=== PATIENT | female | born 1935 | race Caucasian/White ===

== ENCOUNTER 2021-11-19 20:30 | Inpatient (IN) ==
[2021-11-19] MEDS ORDERED: SODIUM CHLORIDE 0.9% 1000ML 1,000 ML IV ONE (20:39)
[2021-11-19] MEDS ORDERED: PANTOprazole 80 MG in DEXTROSE 5% 100 ML IV ONE (20:54)
[2021-11-19] MEDS ORDERED: PANTOPRAZOLE BOLUS/DRIP 1 EA IV STA (20:54)
[2021-11-19 21:06] LABS: iSTAT Creatinine 0.7 mg/dl (0.6-1.3); iSTAT Hemoglobin 12.6 g/dl (12.0-16.0); iSTAT Ionized Calcium 1.11 mmol/l (1.12-1.32); iSTAT Potassium 4.2 mmol/L (3.3-5.0)
[2021-11-19] MEDS ORDERED: OPTIRAY 320 100ml IV ONE (21:06)
[2021-11-19 21:10] LABS: Basophils # (auto) 0.02 K/uL (0-0.2); Basophils % (auto) 0.2 %; Hemoglobin 13.8 g/dL (12.0-16.0); Immature Granulocytes # (auto) 0.06 K/uL (0.00-0.02); Immature Granulocytes % (auto) 0.5 %; Lymphocytes # (auto) 2.08 K/uL (1.2-3.4); Lymphocytes % (auto) 18.5 %; Mean Corpuscular Hemoglobin 32.8 pg (25-34); Mean Corpuscular Hgb Conc 33.7 g/dL (32-36); Mean Corpuscular Volume 97.4 fL (80-100); Mean Platelet Volume 10.5 fL (7.4-10.4); Monocytes # (auto) 0.62 K/uL (0.11-0.59); Monocytes % (auto) 5.5 %; Neutrophils # (auto) 8.47 K/uL (1.4-6.5); Neutrophils % (auto) 75.3 %; Platelet Count 316 K/uL (130-400); RDW Standard Deviation 46.4 fL (36.4-46.3); Red Blood Count 4.21 M/uL (4.2-5.4); White Blood Count 11.25 K/uL (4.8-10.8)
[2021-11-19] MEDS ORDERED: LORazepam 2 MG/4 ML VIAL ONE (21:18)
[2021-11-19] MEDS ORDERED: LORazepam 1 MG/2 ML VIAL IV STA (21:19)
[2021-11-19 21:20] LABS: Base Excess VBG -1.7 mEq/L; HCO3 VBG 23 mmol/L; Oxygen Saturation VBG < 60.0 %; PCO2 VBG 41 mmHg (38-50); PO2 VBG 20 mmHg; pH VBG 7.38 (7.36-7.41)
--- NOTE | 2021-11-19 21:29 | CT Scan Report ---
CT head/brain wo con CLINICAL HISTORY: Patient found down on ground. Evaluate for head injury COMPARISON STUDY: No previous studies for comparison. CT DOSE: TECHNIQUE: Standard CT of the Brain was performed without IV contrast. A dose lowering technique was utilized adhering to the principles of ALARA. FINDINGS: Extraaxial space: There is no evidence for subdural hematoma. There are no extra-axial fluid collecti ons. Ventricles and cisterns: The ventricles are mildly dilated bilaterally. There is no evidence for mid line shift or mass effect. Parenchyma: There is no subarachnoid or intraparenchymal hemorrhage. There is no evidence for an acu te infarct or cerebral edema. There is mild cerebral cortical atrophy present. There is homogeneous a ttenuation of the brain parenchyma. There are no gross mass lesions. Osseous structures: There is no evidence for an acute fracture. There is almost complete opacificatio n of the right sphenoid sinus. Fluid levels are present within the maxillary antra bilaterally. The r emaining visualized paranasal sinuses are clear. The mastoid air cells are clear bilaterally. Soft tissues: There is no evidence for focal soft tissue swelling. IMPRESSION: No acute intracerebral pathology. Mild cerebral cortical atrophy. Right sphenoid and bila teral maxillary sinusitis. ACT 112: Negative or not required by law. Electronically signed by: Ramone Mclain M.D. 11/19/2021 9:28 PM
[2021-11-19 21:31] LABS: INR 1.1 (0.9-1.1); Partial Thromboplastin Ratio 0.9; Partial Thromboplastin Time 24.7 Seconds (21.0-31.0); Prothrombin Time 10.8 Seconds (9.0-12.0)
[2021-11-19] MEDS: PANTOprazole 40 MG in DEXTROSE 5% 100 ML IV SCH (21:32)
--- NOTE | 2021-11-19 21:34 | CT Scan Report ---
CT facial bones wo con CLINICAL HISTORY: Patient found down on ground bleeding. COMPARISON STUDY: No previous studies for comparison. CT DOSE: TECHNIQUE: Standard CT of the Facial Bones and Orbits was performed without IV contrast. A dose lowe ring technique was utilized adhering to the principles of ALARA. FINDINGS: Bones: There are no displaced fractures identified. The orbital rims are intact bilaterally. The zygo matic arches are intact bilaterally. Nasal bones are intact. The nasal septum is in the midline. The mandible and maxilla are intact. Paranasal sinuses: There is diffuse mucosal thickening of the right sphenoid sinus. Fluid levels are present within the maxillary antra bilaterally. Soft tissues: There is no focal soft tissue swelling. IMPRESSION: No acute abnormality. Bilateral maxillary and right sphenoid sinusitis. ACT 112: Negative or not required by law. Electronically signed by: Ramone Mclain M.D. 11/19/2021 9:33 PM
[2021-11-19 21:37] LABS: Alanine Aminotransferase 13 U/L (7-52); Albumin Level 3.8 gm/dl (3.4-5.0); Alkaline Phosphatase 65 U/L (34-104); Anion Gap 16 (3-11); Aspartate Aminotransferase 22 U/L (13-39); BUN Creatinine Ratio 34.1 (10-20); Bilirubin Direct 0.1 mg/dl (0-0.2); Bilirubin,Total 0.7 mg/dl (0.2-1.0); Blood Urea Nitrogen 29 mg/dl (6-23); Calcium 8.8 mg/dl (8.5-10.1); Carbon Dioxide 22 mmol/L (21-32); Chloride 99 mmol/L (98-107); Creatine Kinase 863 U/L (26-192); Est GFR (African American) 71.4 ml/min; Est GFR (Non-African American) 61.6 ml/min; Glucose 101 mg/dl (70-99(Fasting)); Lipase 13 U/L (11-82); Magnesium 2.2 mg/dl (1.7-2.4); Potassium 4.7 mmol/L (3.5-5.1); Sodium 137 mmol/L (136-145)
--- NOTE | 2021-11-19 21:37 | CT Scan Report ---
CT cervical spine wo con CLINICAL HISTORY: Patient found down on ground. Unresponsive. COMPARISON STUDY: No previous studies for comparison. CT DOSE: TECHNIQUE: Standard CT of the Cervical Spine was performed without IV contrast. A dose lowering te chnique was utilized adhering to the principles of ALARA. FINDINGS: Bones: The bones are osteopenic. There is no evidence for an acute fracture or malalignment. The heig hts of the vertebral bodies are maintained. The vertebral bodies are in anatomic alignment. The odont oid is intact and the atlantoaxial articulation is within normal limits. Disc spaces:There is moderate to marked disc space narrowing at C5-6 and C6-7 with endplate osteophyt e formation. Apophyseal joints:Degenerative apophyseal joint disease is also present. Soft tissues:The prevertebral soft tissues are within normal limits. IMPRESSION: Osteopenia with no acute abnormality. Degenerative disc and degenerative joint disease. ACT 112: Negative or not required by law. Electronically signed by: Ramone Mclain M.D. 11/19/2021 9:35 PM
[2021-11-19] MEDS ORDERED: ACETAMINOPHEN 1000 MG/100 ML IV IV ONE (21:39)
--- NOTE | 2021-11-19 21:43 | CT Scan Report ---
CT abd pelvis IV con only CLINICAL HISTORY: Patient found down on ground. Unresponsive. COMPARISON STUDY: 01/24/2007 CT DOSE: 1785.40 mGy.cm TECHNIQUE: Standard CT of the Abdomen and Pelvis was performed with IV contrast. A dose lowering az hnique was utilized adhering to the principles of ALARA. Contrast Volume: Optiray 320, 95 ml. The patient did not receive oral contrast. FINDINGS: There is breathing motion artifact present. Lung base: The lung bases are clear. Abdominal cavity: There is no evidence for abdominal mass, adenopathy or ascites. Liver: There is homogeneous attenuation of the liver parenchyma. There is no evidence for enhancing m ass lesion. Spleen: There is homogeneous attenuation of the splenic parenchyma. There is no enhancing mass lesion . Pancreas: There is homogeneous attenuation of the pancreatic parenchyma. There is no evidence for mas s lesion or peripancreatic fluid collection. Gall Bladder: The gallbladder is well distended with no evidence for intraluminal calculi, wall thick ening or pericholecystic edema. Adrenal glands: The adrenal glands are normal in size and attenuation. There is no evidence for enhan cing mass lesion. Kidneys: There is homogeneous attenuation of the renal parenchyma bilaterally. There is no evidence f or renal calculus or hydronephrosis. There is no evidence for enhancing mass. Bowel: The bowel loops are normally placed within the abdomen and pelvis without evidence for dilatat ion or obstruction. There is no evidence for mass lesion. There are no inflammatory changes present. There is no evidence for free air. Bladder: The bladder is distended with no evidence for focal mass, calculus or diverticulum. : There is no evidence for pelvic mass or adenopathy. There is no evidence for pelvic ascites. Vasculature: There is no evidence for aneurysmal dilatation of the abdominal aorta. Mild atherosclero tic calcification is present. Osseous structures: There is no acute osseous pathology. Extensive degenerative changes are seen with in the spine. IMPRESSION: 1. No acute intra-abdominal or pelvic abnormality. The study is limited by breathing motion artifact. ACT 112: Negative or not required by law. Electronically signed by: Ramone Mclain M.D. 11/19/2021 9:42 PM
[2021-11-19 21:45] LABS: Troponin I 0.05 ng/ml (0-0.04)
[2021-11-19 21:48] LABS: Appearance Urine Clear (Clear); Bacteria Urine Automated Negative (Negative); Bilirubin Urine Negative (Negative); Blood Urine Negative (Negative); Color Urine Yellow; Glucose Urine UA Negative (Negative); Ketones Urine 1+ (Negative); Leukocyte Esterase Urine Negative (Negative); Nitrite Urine Negative (Negative); Protein Urine 1+ (Negative); RBC Urine Automated 0-4 /hpf (0-4); Specific Gravity Urine 1.018 (1.000-1.030); Urobilinogen Urine Negative (Negative)
[2021-11-19] MEDS ORDERED: levETIRAcetam 1,000 MG in 0.9 % SODIUM CHLORIDE 100 ML IV STA (21:52)
[2021-11-19] MEDS ORDERED: CEFEPIME 2,000 MG/20 ML VIAL IV STA (22:00)
[2021-11-19] MEDS ORDERED: VANCOMYCIN CONSULT ACTIVE PRN (22:00)
[2021-11-19] MEDS ORDERED: VANCOMYCIN HCL 1,500 MG in SODIUM CHLORIDE 0.9% 500 ML IV ONE (22:00)
--- NOTE | 2021-11-19 22:18 | XRay Report ---
XR pelvis 1-2V routine CLINICAL HISTORY: found down. COMPARISON STUDY: No previous studies for comparison. TECHNIQUE: [A single AP radiograph was obtained. FINDINGS: There is no evidence for an acute fracture. There is moderate to marked narrowing of the hip joint sp aces, right greater than left. The SI joints are intact bilaterally. Degenerative changes are seen in volving the pubic symphysis. The remaining visualized bones of the pelvis are intact. No focal soft t issue abnormalities identified. IMPRESSION: No acute abnormality. Degenerative changes. ACT 112: Negative or not required by law. Electronically signed by: Ramone Mclain M.D. 11/19/2021 10:17 PM
--- NOTE | 2021-11-19 22:22 | XRay Report ---
XR chest 1V portable CLINICAL HISTORY: found down. COMPARISON STUDY: No previous studies for comparison. TECHNIQUE: 1 view of the chest FINDINGS: Single frontal view of the chest demonstrates the cardiomediastinal silhouette to be within normal li mits. The lungs are clear of alveolar opacities. There is no evidence for pleural effusion. There is no evidence for vascular congestion. There is no acute osseous pathology. IMPRESSION: No acute cardiopulmonary disease. ACT 112: Negative or not required by law. Electronically signed by: Ramone Mclain M.D. 11/19/2021 10:20 PM
--- NOTE | 2021-11-19 22:24 | XRay Report ---
XR shoulder LT min 2V routine CLINICAL HISTORY: found down. COMPARISON STUDY: No previous studies for comparison. TECHNIQUE: 2 left shoulder views FINDINGS: Bones: There is suspicion of a vertically oriented fracture through the base of the tuberosity of the humerus. CT would be the study of choice for further evaluation. There is no lytic or blastic lesion . Joints: The joint spaces are maintained. The bones are in anatomic alignment. Soft tissues: There is no focal soft tissue abnormality. There is no radiopaque foreign body. IMPRESSION: Suspicion of a vertically oriented fracture through the base of the tuberosity of the hum erus. CT of the left shoulder with the study of choice for further evaluation. ACT 112: Negative or not required by law. Electronically signed by: Ramone Mclain M.D. 11/19/2021 10:22 PM
[2021-11-19] MEDS ORDERED: LORazepam 1 MG/2 ML VIAL IV PRN (22:49)
--- NOTE | 2021-11-19 23:12 | Emergency Department Note ---
History of Present Illness General Chief complaint: Unresponsive Stated complaint: Bleeding, Unresponsive Time Seen by Provider: 11/19/21 20:38 Source: EMS History of Present Illness Provider complaint: Unresponsive found down 86-year-old female was brought in via EMS for unresponsiveness and found down. EMS reports that the patient was found on the ground in her house. Patient was covered in blood. Patient not thought to be on any blood thinners. Home Medications Medication Instructions Recorded Confirmed Type amlodipine 5 mg tablet (Norvasc) 5 mg PO DAILY 11/19/21 11/19/21 History aspirin 81 mg tablet 81 mg PO DAILY 11/19/21 11/19/21 History atorvastatin 20 mg tablet 20 mg PO DAILY 11/19/21 11/19/21 History calcium carbonate 600 mg-vitamin 2 tab PO DAILY 11/19/21 11/19/21 History D3 10 mcg (400 unit) tablet (Calcium 600 + D(3)) cholecalciferol (vitamin D3) 25 25 mcg PO DAILY 11/19/21 11/19/21 History mcg (1,000 unit) capsule (Vitamin D3) hydrochlorothiazide 25 mg tablet 25 mg PO DAILY 11/19/21 11/19/21 History levothyroxine 50 mcg tablet 50 mcg PO DAILY 11/19/21 11/19/21 History lorazepam 0.5 mg tablet 0.5 mg PO BID PRN 11/19/21 11/19/21 History magnesium oxide 400 mg PO DAILY 11/19/21 11/19/21 History meclizine 25 mg tablet 25 mg PO TID 11/19/21 11/19/21 History potassium citrate 10 mEq (1,080 10 meq PO DAILY 11/19/21 11/19/21 History mg) tablet,extended release propranolol 120 mg capsule,24 240 mg PO DAILY 11/19/21 11/19/21 History hr,extended release vitamin A-vitamin C-vit E-min 1 tab PO DAILY 11/19/21 11/19/21 History tablet warfarin 2 mg tablet 0 mg PO DAILY 11/19/21 11/19/21 History Allergies Allergy/AdvReac Type Severity Reaction Status Date / Time metronidazole Allergy Mild Unknown Verified 11/19/21 21:15 Past Med/Surg History Medical History (Updated 11/19/21 @ 23:19 by Jeronimo Heard) HLD (hyperlipidemia) HTN (hypertension) No pertinent family history Surgical History (Updated 11/19/21 @ 23:05 by Jeronimo Heard) No pertinent past surgical history Social History Smoking Status: Unknown if ever smoked Review of Systems Unobtainable due to reduced consciousness Physical Exam Vital Signs Vital Signs - 24 hr 11/19/21 20:56 11/19/21 21:31 11/19/21 21:33 Temperature 34 C L Temperature Source Rectal Pulse Rate 103 H 94 H Pulse Rate [Right Finger] 94 H Pulse Rhythm Regular Respiratory Rate 21 22 19 Respiratory Effort / Characteristics Non-Labored Spontaneous Respiratory Depth Normal Blood Pressure 138/66 Blood Pressure [Right Arm] 120/84 Blood Pressure Mean 90 Blood Pressure Mean [Right Arm] 96 Pulse Oximetry 100 100 100 Oxygen Delivery Method Room Air Nasal Cannula Nasal Cannula Oxygen Flow Rate 2 4 Sepsis Recent Fever Within 48 Hours No Sepsis New/Unexplained Change in Mental Status N/A Sepsis Action Taken by Nursing Physician Notified 11/19/21 21:34 11/19/21 22:20 Temperature Temperature Source Pulse Rate Pulse Rate [Right Finger] 99 H Pulse Rhythm Respiratory Rate 20 Respiratory Effort / Characteristics Non-Labored Spontaneous Respiratory Depth Normal Blood Pressure Blood Pressure [Right Arm] 161/77 H Blood Pressure Mean Blood Pressure Mean [Right Arm] 105 Pulse Oximetry 100 100 Oxygen Delivery Method Nasal Cannula Nasal Cannula Oxygen Flow Rate 4 2 Sepsis Recent Fever Within 48 Hours Sepsis New/Unexplained Change in Mental Status Sepsis Action Taken by Nursing Physical Exam GENERAL: Patient is covered in dried blood from her face all over her body. HEENT: -Right Ear: External ear normal. No mastoid tenderness. -Left Ear: External ear normal. No mastoid tenderness. EYES: Conjunctivae and EOM are normal. Pupils are equal, round, and reactive to light. Right eye exhibits no discharge. Left eye exhibits no discharge. No scleral icterus. NECK: Patient in c-collar. CV: Normal rate, regular rhythm, normal heart sounds and intact distal pulses. There is no peripheral edema. Palpable radial pulses bue. PULM/CHEST: Rhonchi bilaterally. ABD: The abdomen is soft. Rectal: Good rectal tone Hemoccult positive. MUSC/SKEL: Pelvis stable. No C, T, or L-spine tenderness. NEURO: GCS eye subscore is 3. GCS verbal subscore is 5. GCS motor subscore is 4. SKIN: Bruise over the left shoulder. Course Course 2037: The patient was evaluated in room B1. A complete history and physical exam was performed Cardiac monitoring: An order was placed for continuous cardiac monitoring. The monitor shows a rate of 110 with sinus tachycardia rhythm Large-bore IV access was obtained and IV fluids were started. Rectal temperature of the patient was 34 C. Patient was started on Aminata hugger. Warm IV fluids ordered for the patient. Patient Hemoccult positive. Protonix IV bolus and drip ordered for the patient. 2102: Liliya geothermal operations manager was able to access patient's chart in the medical center which does show that the patient is on Coumadin. Son is now at bedside and confirms that the patient is on Coumadin. The son states that he found the patient on the ground in her home at 1830 tonight. He states that he does not live with her but checks in on her frequently. He states he saw her last night around 2100 and she was normal. Son states that he is the patient's healthcare power of assistant district attorney and that the patient is a DNR/DNI. 2120: At CT scan the patient had a seizure that lasted less than 1 minute. Patient was brought back to the resuscitation bay and Ativan 1 mg ordered for the patient. Son again confirms that the patient is a DNR/DNI. 2199: Anderson catheter placed in the patient via nursing. After Anderson catheter was placed the patient's temperature at 38.2. Bear hugger was discontinued and the patient was given Tylenol [address] of the head, C-spine, facial bones, and abdomen pelvis showed no acute traumatic injury. Labs show white blood count count of 11.2. Hemoglobin 13.8. INR 1.1. Labs are also significant for lactate of 2.8. Troponin 0.05. Creatinine kinase 863. Given the patient had a seizure Keppra 1 g IV piggyback ordered for the patient. It is difficult to tell if the patient is septic given the lactic acid EMEA as well as the hyp othermia now hypothermia. Broad-spectrum antibiotics started on the patient vancomycin and cefepime. [facility]. Discussed with Dr. Katz who accepts the patient. 2244: X-ray shows possible humerus fracture. Patient placed in sling. [facility] order CAT scan. Administered Medications Pantoprazole Sodium 40 mg/ (Dextrose) 100 mls @ 20 mls/hr IV Q5H PAULA Stop: 12/19/21 21:14 Last Admin: 11/19/21 21:32 Dose: 8 mg/hr, 20 mls/hr Documented by: [id number] Discontinued Medications Acetaminophen (Acetaminophen 1000 Mg/100 Ml Iv) 1,000 mg IV ONCE ONE Stop: 11/19/21 21:40 Last Admin: 11/19/21 21:58 Dose: 1,000 mg Documented by: [id number] Sodium Chloride (Nss 1000ml) 1,000 mls @ 999 mls/hr IV .Q1H1M ONE Stop: 11/19/21 21:39 Last Infusion: 11/19/21 22:42 Dose: 0 mls/hr Documented by: [id number] Admin: 11/19/21 21:12 Dose: 999 mls/hr Documented by: [id number] Pantoprazole Sodium (Protonix Bolus/Drip) 0 mls @ 1 mls/hr IV ONE STA Stop: 11/19/21 20:55 Last Admin: 11/19/21 21:30 Dose: 1 mls/hr Documented by: [id number] Pantoprazole Sodium 80 mg/ (Dextrose) 120 mls @ 400 mls/hr IV NOW ONE Stop: 11/19/21 21:11 Last Infusion: 11/19/21 22:41 Dose: 0 mls/hr Documented by: [id number] Admin: 11/19/21 21:30 Dose: 400 mls/hr Documented by: [id number] Lorazepam (Ativan) 1 mg in 2 mls @ 2 mls/min IV NOW STA Stop: 11/19/21 21:20 Last Admin: 11/19/21 21:30 Dose: Not Given Documented by: [id number] Levetiracetam 1,000 mg/ Sodium (Chloride) 110 mls @ 440 mls/hr IV NOW STA Stop: 11/19/21 22:06 Last Infusion: 11/19/21 22:41 Dose: 0 mls/hr Documented by: [id number] Admin: 11/19/21 22:20 Dose: 440 mls/hr Documented by: [id number] Cefepime HCl (Maxipime) 2,000 mg in 20 mls @ 5 mls/min IV NOW STA; Protocol Stop: 01/23/22 22:03 Last Admin: 11/19/21 22:15 Dose: 5 mls/min Documented by: [id number] Ioversol (Optiray 320 100ml) 93 ml IV ONCE ONE Stop: 11/19/21 21:07 Last Admin: 11/19/21 21:14 Dose: 93 ml Documented by: [id number] Lorazepam (Lorazepam 2 Mg/4 Ml Vial) Confirm Administered Dose 2 mg .ROUTE .STK- MED ONE Stop: 11/19/21 21:19 Last Increment: 11/19/21 21:30 Dose: 1 mg Documented by: [id number] Critical Care Time Critical Care Time: Yes Total Critical Care Time: 71 I have personally spent greater than 71 minutes of critical care time in the direct management of this patient. This includes bedside care, interpretation of diagnostic studies, and testing, discussion with consultants, patient, and family members, and other required patient management activities. This 71 minutes is in excess of all separately billable procedures. Medical Decision Making Laboratory Data Result diagrams: 11/19/21 20:51 11/19/21 20:51 Lab Results 11/19/21 11/19/21 11/19/21 Range/Units 20:51 20:51 20:51 WBC 11.25 H (4.8-10.8) K/uL RBC 4.21 (4.2-5.4) M/uL Hgb 13.8 (12.0-16.0) g/dL POC Hgb (12.0-16.0) g/dl Hct 41.0 (37-47) % POC Hct (37-47) % MCV 97.4 (80-100) fL MCH 32.8 (25-34) pg MCHC 33.7 (32-36) g/dL RDW Std Deviation 46.4 H (36.4-46.3) fL RDW Coeff of Jimy 13.0 (11.5-14.5) % Plt Count 316 (130-400) K/uL MPV 10.5 H (7.4-10.4) fL Immature Gran % (Auto) 0.5 % Neut % (Auto) 75.3 % Lymph % (Auto) 18.5 % Osborne % (Auto) 5.5 % Eos % (Auto) 0.0 % Baso % (Auto) 0.2 % Neut # (Auto) 8.47 H (1.4-6.5) K/uL Lymph # (Auto) 2.08 (1.2-3.4) K/uL Osborne # (Auto) 0.62 H (0.11-0.59) K/uL Eos # (Auto) 0.00 (0-0.5) K/uL Baso # (Auto) 0.02 (0-0.2) K/uL Immature Gran # (Auto) 0.06 H (0.00-0.02) K/uL PT (9.0-12.0) Seconds INR (0.9-1.1) APTT (21.0-31.0) Seconds PTT Ratio VBG pH (7.36-7.41) VBG pCO2 (38-50) mmHg VBG pO2 mmHg VBG HCO3 mmol/L VBG O2 Saturation % VBG Base Excess mEq/L Barometric Pressure mm/Hg POC Sodium (135-144) mmol/L Sodium 137 (136-145) mmol/L POC Potassium (3.3-5.0) mmol/L Potassium 4.7 (3.5-5.1) mmol/L POC Chloride (101-112) mmol/L Chloride 99 (98-107) mmol/L Carbon Dioxide 22 (21-32) mmol/L POC Total CO2 (24-31) mmol/L Anion Gap 16 H (3-11) POC Anion Gap (16-25) mmol/L POC BUN (7-18) mg/dl BUN 29 H (6-23) mg/dl Creatinine 0.85 (0.6-1.2) mg/dl POC Creatinine (0.6-1.3) mg/dl Est Cr Clr Drug Dosing Not Reportable Est GFR ( Amer) 71.4 ml/min Est GFR (Non-Af Amer) 61.6 ml/min BUN/Creatinine Ratio 34.1 H (10-20) Glucose 101 H (70-99(Fasting)) mg/dl POC Glucose (other) (70-99) mg/dl Lactate (0.4-2.0) mmol/L Calcium 8.8 (8.5-10.1) mg/dl POC Ioniz Calcium Jono (1.12-1.32) mmol/l Magnesium 2.2 (1.7-2.4) mg/dl Total Bilirubin 0.7 (0.2-1.0) mg/dl Direct Bilirubin 0.1 (0-0.2) mg/dl AST 22 (13-39) U/L ALT 13 (7-52) U/L Alkaline Phosphatase 65 (34-104) U/L Total Creatine Kinase 863 H (26-192) U/L Troponin I 0.05 H* (0-0.04) ng/ml Total Protein 7.0 (6.0-8.3) gm/dl Albumin 3.8 (3.4-5.0) gm/dl Lipase 13 (11-82) U/L Urine Color Urine Appearance (Clear) Urine pH (4.5-7.5) Ur Specific [place] (1.000-1.030) Urine Protein (Negative) Urine Glucose (UA) (Negative) Urine Ketones (Negative) Urine Blood (Negative) Urine Nitrite (Negative) Urine Bilirubin (Negative) Urine Urobilinogen (Negative) Ur Leukocyte Esterase (Negative) Urine WBC (Auto) (0-5) /hpf Urine RBC (Auto) (0-4) /hpf U Hyaline Cast (Auto) (0-5) /lpf U Epithel Cells (Auto) (0-5) /lpf Urine Bacteria (Auto) (Negative) Ethyl Alcohol mg/dL (<10.0) mg/dl SARS-CoV-2, RNA, NAAT (NEGATIVE) Blood Type A Positive Antibody Screen NEGATIVE 11/19/21 11/19/21 11/19/21 Range/Units 20:51 20:51 20:51 WBC (4.8-10.8) K/uL RBC (4.2-5.4) M/uL Hgb (12.0-16.0) g/dL POC Hgb (12.0-16.0) g/dl Hct (37-47) % POC Hct (37-47) % MCV (80-100) fL MCH (25-34) pg MCHC (32-36) g/dL RDW Std Deviation (36.4-46.3) fL RDW Coeff of Jimy (11.5-14.5) % Plt Count (130-400) K/uL MPV (7.4-10.4) fL Immature Gran % (Auto) % Neut % (Auto) % Lymph % (Auto) % Osborne % (Auto) % Eos % (Auto) % Baso % (Auto) % Neut # (Auto) (1.4-6.5) K/uL Lymph # (Auto) (1.2-3.4) K/uL Osborne # (Auto) (0.11-0.59) K/uL Eos # (Auto) (0-0.5) K/uL Baso # (Auto) (0-0.2) K/uL Immature Gran # (Auto) (0.00-0.02) K/uL PT 10.8 (9.0-12.0) Seconds INR 1.1 (0.9-1.1) APTT 24.7 (21.0-31.0) Seconds PTT Ratio 0.9 VBG pH (7.36-7.41) VBG pCO2 (38-50) mmHg VBG pO2 mmHg VBG HCO3 mmol/L VBG O2 Saturation % VBG Base Excess mEq/L Barometric Pressure mm/Hg POC Sodium (135-144) mmol/L Sodium (136-145) mmol/L POC Potassium (3.3-5.0) mmol/L Potassium (3.5-5.1) mmol/L POC Chloride (101-112) mmol/L Chloride (98-107) mmol/L Carbon Dioxide (21-32) mmol/L POC Total CO2 (24-31) mmol/L Anion Gap (3-11) POC Anion Gap (16-25) mmol/L POC BUN (7-18) mg/dl BUN (6-23) mg/dl Creatinine (0.6-1.2) mg/dl POC Creatinine (0.6-1.3) mg/dl Est Cr Clr Drug Dosing Est GFR ( Amer) ml/min Est GFR (Non-Af Amer) ml/min BUN/Creatinine Ratio (10-20) Glucose (70-99(Fasting)) mg/dl POC Glucose (other) (70-99) mg/dl Lactate 2.8 H* (0.4-2.0) mmol/L Calcium (8.5-10.1) mg/dl POC Ioniz Calcium Jono (1.12-1.32) mmol/l Magnesium (1.7-2.4) mg/dl Total Bilirubin (0.2-1.0) mg/dl Direct Bilirubin (0-0.2) mg/dl AST (13-39) U/L ALT (7-52) U/L Alkaline Phosphatase (34-104) U/L Total Creatine Kinase (26-192) U/L Troponin I (0-0.04) ng/ml Total Protein (6.0-8.3) gm/dl Albumin (3.4-5.0) gm/dl Lipase (11-82) U/L Urine Color Urine Appearance (Clear) Urine pH (4.5-7.5) Ur Specific [place] (1.000-1.030) Urine Protein (Negative) Urine Glucose (UA) (Negative) Urine Ketones (Negative) Urine Blood (Negative) Urine Nitrite (Negative) Urine Bilirubin (Negative) Urine Urobilinogen (Negative) Ur Leukocyte Esterase (Negative) Urine WBC (Auto) (0-5) /hpf Urine RBC (Auto) (0-4) /hpf U Hyaline Cast (Auto) (0-5) /lpf U Epithel Cells (Auto) (0-5) /lpf Urine Bacteria (Auto) (Negative) Ethyl Alcohol mg/dL < 10.0 (<10.0) mg/dl SARS-CoV-2, RNA, NAAT (NEGATIVE) Blood Type Antibody Screen 11/19/21 11/19/21 11/19/21 Range/Units 20:51 20:53 21:29 WBC (4.8-10.8) K/uL RBC (4.2-5.4) M/uL Hgb (12.0-16.0) g/dL POC Hgb 12.6 (12.0-16.0) g/dl Hct (37-47) % POC Hct 37 (37-47) % MCV (80-100) fL MCH (25-34) pg MCHC (32-36) g/dL RDW Std Deviation (36.4-46.3) fL RDW Coeff of Jimy (11.5-14.5) % Plt Count (130-400) K/uL MPV (7.4-10.4) fL Immature Gran % (Auto) % Neut % (Auto) % Lymph % (Auto) % Osborne % (Auto) % Eos % (Auto) % Baso % (Auto) % Neut # (Auto) (1.4-6.5) K/uL Lymph # (Auto) (1.2-3.4) K/uL Osborne # (Auto) (0.11-0.59) K/uL Eos # (Auto) (0-0.5) K/uL Baso # (Auto) (0-0.2) K/uL Immature Gran # (Auto) (0.00-0.02) K/uL PT (9.0-12.0) Seconds INR (0.9-1.1) APTT (21.0-31.0) Seconds PTT Ratio VBG pH 7.38 (7.36-7.41) VBG pCO2 41 (38-50) mmHg VBG pO2 20 mmHg VBG HCO3 23 mmol/L VBG O2 Saturation < 60.0 % VBG Base Excess -1.7 mEq/L Barometric Pressure 725.5 mm/Hg POC Sodium 138 (135-144) mmol/L Sodium (136-145) mmol/L POC Potassium 4.2 (3.3-5.0) mmol/L Potassium (3.5-5.1) mmol/L POC Chloride 103 (101-112) mmol/L Chloride (98-107) mmol/L Carbon Dioxide (21-32) mmol/L POC Total CO2 22 L (24-31) mmol/L Anion Gap (3-11) POC Anion Gap 18.0 (16-25) mmol/L POC BUN 27 H (7-18) mg/dl BUN (6-23) mg/dl Creatinine (0.6-1.2) mg/dl POC Creatinine 0.7 (0.6-1.3) mg/dl Est Cr Clr Drug Dosing Est GFR ( Amer) ml/min Est GFR (Non-Af Amer) ml/min BUN/Creatinine Ratio (10-20) Glucose (70-99(Fasting)) mg/dl POC Glucose (other) 107 H (70-99) mg/dl Lactate (0.4-2.0) mmol/L Calcium (8.5-10.1) mg/dl POC Ioniz Calcium Jono 1.11 L (1.12-1.32) mmol/l Magnesium (1.7-2.4) mg/dl Total Bilirubin (0.2-1.0) mg/dl Direct Bilirubin (0-0.2) mg/dl AST (13-39) U/L ALT (7-52) U/L Alkaline Phosphatase (34-104) U/L Total Creatine Kinase (26-192) U/L Troponin I (0-0.04) ng/ml Total Protein (6.0-8.3) gm/dl Albumin (3.4-5.0) gm/dl Lipase (11-82) U/L Urine Color Urine Appearance (Clear) Urine pH (4.5-7.5) Ur Specific [place] (1.000-1.030) Urine Protein (Negative) Urine Glucose (UA) (Negative) Urine Ketones (Negative) Urine Blood (Negative) Urine Nitrite (Negative) Urine Bilirubin (Negative) Urine Urobilinogen (Negative) Ur Leukocyte Esterase (Negative) Urine WBC (Auto) (0-5) /hpf Urine RBC (Auto) (0-4) /hpf U Hyaline Cast (Auto) (0-5) /lpf U Epithel Cells (Auto) (0-5) /lpf Urine Bacteria (Auto) (Negative) Ethyl Alcohol mg/dL (<10.0) mg/dl SARS-CoV-2, RNA, NAAT NEGATIVE (NEGATIVE) Blood Type Antibody Screen 11/19/21 Range/Units 21:29 WBC (4.8-10.8) K/uL RBC (4.2-5.4) M/uL Hgb (12.0-16.0) g/dL POC Hgb (12.0-16.0) g/dl Hct (37-47) % POC Hct (37-47) % MCV (80-100) fL MCH (25-34) pg MCHC (32-36) g/dL RDW Std Deviation (36.4-46.3) fL RDW Coeff of Jimy (11.5-14.5) % Plt Count (130-400) K/uL MPV (7.4-10.4) fL Immature Gran % (Auto) % Neut % (Auto) % Lymph % (Auto) % Osborne % (Auto) % Eos % (Auto) % Baso % (Auto) % Neut # (Auto) (1.4-6.5) K/uL Lymph # (Auto) (1.2-3.4) K/uL Osborne # (Auto) (0.11-0.59) K/uL Eos # (Auto) (0-0.5) K/uL Baso # (Auto) (0-0.2) K/uL Immature Gran # (Auto) (0.00-0.02) K/uL PT (9.0-12.0) Seconds INR (0.9-1.1) APTT (21.0-31.0) Seconds PTT Ratio VBG pH (7.36-7.41) VBG pCO2 (38-50) mmHg VBG pO2 mmHg VBG HCO3 mmol/L VBG O2 Saturation % VBG Base Excess mEq/L Barometric Pressure mm/Hg POC Sodium (135-144) mmol/L Sodium (136-145) mmol/L POC Potassium (3.3-5.0) mmol/L Potassium (3.5-5.1) mmol/L POC Chloride (101-112) mmol/L Chloride (98-107) mmol/L Carbon Dioxide (21-32) mmol/L POC Total CO2 (24-31) mmol/L Anion Gap (3-11) POC Anion Gap (16-25) mmol/L POC BUN (7-18) mg/dl BUN (6-23) mg/dl Creatinine (0.6-1.2) mg/dl POC Creatinine (0.6-1.3) mg/dl Est Cr Clr Drug Dosing Est GFR ( Amer) ml/min Est GFR (Non-Af Amer) ml/min BUN/Creatinine Ratio (10-20) Glucose (70-99(Fasting)) mg/dl POC Glucose (other) (70-99) mg/dl Lactate (0.4-2.0) mmol/L Calcium (8.5-10.1) mg/dl POC Ioniz Calcium Jono (1.12-1.32) mmol/l Magnesium (1.7-2.4) mg/dl Total Bilirubin (0.2-1.0) mg/dl Direct Bilirubin (0-0.2) mg/dl AST (13-39) U/L ALT (7-52) U/L Alkaline Phosphatase (34-104) U/L Total Creatine Kinase (26-192) U/L Troponin I (0-0.04) ng/ml Total Protein (6.0-8.3) gm/dl Albumin (3.4-5.0) gm/dl Lipase (11-82) U/L Urine Color Yellow Urine Appearance Clear (Clear) Urine pH 5.0 (4.5-7.5) Ur Specific [place] 1.018 (1.000-1.030) Urine Protein 1+ H (Negative) Urine Glucose (UA) Negative (Negative) Urine Ketones 1+ H (Negative) Urine Blood Negative (Negative) Urine Nitrite Negative (Negative) Urine Bilirubin Negative (Negative) Urine Urobilinogen Negative (Negative) Ur Leukocyte Esterase Negative (Negative) Urine WBC (Auto) 1-5 (0-5) /hpf Urine RBC (Auto) 0-4 (0-4) /hpf U Hyaline Cast (Auto) 1-5 (0-5) /lpf U Epithel Cells (Auto) 10-20 H (0-5) /lpf Urine Bacteria (Auto) Negative (Negative) Ethyl Alcohol mg/dL (<10.0) mg/dl SARS-CoV-2, RNA, NAAT (NEGATIVE) Blood Type Antibody Screen Imaging Data Radiologist's Impression: Abdomen/Pelvis CT 11/19/21 20:39 CT abd pelvis IV con only CLINICAL HISTORY: Patient found down on ground. Unresponsive. COMPARISON STUDY: 01/24/2007 CT DOSE: 1785.40 mGy.cm TECHNIQUE: Standard CT of the Abdomen and Pelvis was performed with IV contrast. A dose lowering technique was utilized adhering to the principles of ALARA. Contrast Volume: Optiray 320, 95 ml. The patient did not receive oral contrast. FINDINGS: There is breathing motion artifact present. Lung base: The lung bases are clear. Abdominal cavity: There is no evidence for abdominal mass, adenopathy or ascites. Liver: There is homogeneous attenuation of the liver parenchyma. There is no evidence for enhancing mass lesion. Spleen: There is homogeneous attenuation of the splenic parenchyma. There is no enhancing mass lesion. Pancreas: There is homogeneous attenuation of the pancreatic parenchyma. There is no evidence for mass lesion or peripancreatic fluid collection. Gall Bladder: The gallbladder is well distended with no evidence for intraluminal calculi, wall thickening or pericholecystic edema. Adrenal glands: The adrenal glands are normal in size and attenuation. There is no evidence for enhancing mass lesion. Kidneys: There is homogeneous attenuation of the renal parenchyma bilaterally. There is no evidence for renal calculus or hydronephrosis. There is no evidence for enhancing mass. Bowel: The bowel loops are normally placed within the abdomen and pelvis without evidence for dilatation or obstruction. There is no evidence for mass lesion. There are no inflammatory changes present. There is no evidence for free air. Bladder: The bladder is distended with no evidence for focal mass, calculus or diverticulum. : There is no evidence for pelvic mass or adenopathy. There is no evidence for pelvic ascites. Vasculature: There is no evidence for aneurysmal dilatation of the abdominal aorta. Mild atherosclerotic calcification is present. Osseous structures: There is no acute osseous pathology. Extensive degenerative changes are seen within the spine. IMPRESSION: 1. No acute intra-abdominal or pelvic abnormality. The study is limited by breathing motion artifact. ACT 112: Negative or not required by law. Electronically signed by: Ramone Mclain M.D. 11/19/2021 9:[address] 11/19/21 20:40 CT cervical spine wo con CLINICAL HISTORY: Patient found down on ground. Unresponsive. COMPARISON STUDY: No previous studies for comparison. CT DOSE: TECHNIQUE: Standard CT of the Cervical Spine was performed without IV contrast. A dose lowering technique was utilized adhering to the principles of ALARA. FINDINGS: Bones: The bones are osteopenic. There is no evidence for an acute fracture or malalignment. The heights of the vertebral bodies are maintained. The vertebral bodies are in anatomic alignment. The odontoid is intact and the atlantoaxial articulation is within normal limits. Disc spaces:There is moderate to marked disc space narrowing at C5-6 and C6-7 with endplate osteophyte formation. Apophyseal joints:Degenerative apophyseal joint disease is also present. Soft tissues:The prevertebral soft tissues are within normal limits. IMPRESSION: Osteopenia with no acute abnormality. Degenerative disc and degenerative joint disease. ACT 112: Negative or not required by law. Electronically signed by: Ramone Mclain M.D. 11/19/2021 9:35 PM Chest X-Ray 11/19/21 20:40 XR chest 1V portable CLINICAL HISTORY: found down. COMPARISON STUDY: No previous studies for comparison. TECHNIQUE: 1 view of the chest FINDINGS: Single frontal view of the chest demonstrates the cardiomediastinal silhouette to be within normal limits. The lungs are clear of alveolar opacities. There is no evidence for pleural effusion. There is no evidence for vascular congestion. There is no acute osseous pathology. IMPRESSION: No acute cardiopulmonary disease. ACT 112: Negative or not required by law. Electronically signed by: Ramone Mclain M.D. 11/19/2021 10:[address] 11/19/21 20:40 CT facial bones wo con CLINICAL HISTORY: Patient found down on ground bleeding. COMPARISON STUDY: No previous studies for comparison. CT DOSE: TECHNIQUE: Standard CT of the Facial Bones and Orbits was performed without IV contrast. A dose lowering technique was utilized adhering to the principles of ALARA. FINDINGS: Bones: There are no displaced fractures identified. The orbital rims are intact bilaterally. The zygomatic arches are intact bilaterally. Nasal bones are intact. The nasal septum is in the midline. The mandible and maxilla are intact. Paranasal sinuses: There is diffuse mucosal thickening of the right sphenoid sinus. Fluid levels are present within the maxillary antra bilaterally. Soft tissues: There is no focal soft tissue swelling. IMPRESSION: No acute abnormality. Bilateral maxillary and right sphenoid sinusitis. ACT 112: Negative or not required by law. Electronically signed by: Ramone Mclain M.D. 11/19/2021 9:[address] 11/19/21 20:40 CT head/brain wo con CLINICAL HISTORY: Patient found down on ground. Evaluate for head injury COMPARISON STUDY: No previous studies for comparison. CT DOSE: TECHNIQUE: Standard CT of the Brain was performed without IV contrast. A dose lowering technique was utilized adhering to the principles of ALARA. FINDINGS: Extraaxial space: There is no evidence for subdural hematoma. There are no extra-axial fluid collections. Ventricles and cisterns: The ventricles are mildly dilated bilaterally. There is no evidence for midline shift or mass effect. Parenchyma: There is no subarachnoid or intraparenchymal hemorrhage. There is no evidence for an acute infarct or cerebral edema. There is mild cerebral cortical atrophy present. There is homogeneous attenuation of the brain parenchyma. There are no gross mass lesions. Osseous structures: There is no evidence for an acute fracture. There is almost complete opacification of the right sphenoid sinus. Fluid levels are present within the maxillary antra bilaterally. The remaining visualized paranasal sinuses are clear. The mastoid air cells are clear bilaterally. Soft tissues: There is no evidence for focal soft tissue swelling. IMPRESSION: No acute intracerebral pathology. Mild cerebral cortical atrophy. Right sphenoid and bilateral maxillary sinusitis. ACT 112: Negative or not required by law. Electronically signed by: Ramone Mclain M.D. 11/19/2021 9:28 PM Pelvis X-Ray 11/19/21 20:40 XR pelvis 1-2V routine CLINICAL HISTORY: found down. COMPARISON STUDY: No previous studies for comparison. TECHNIQUE: [A single AP radiograph was obtained. FINDINGS: There is no evidence for an acute fracture. There is moderate to marked narrowing of the hip joint spaces, right greater than left. The SI joints are intact bilaterally. Degenerative changes are seen involving the pubic symphysis. The remaining visualized bones of the pelvis are intact. No focal soft tissue abnormalities identified. IMPRESSION: No acute abnormality. Degenerative changes. ACT 112: Negative or not required by law. Electronically signed by: Ramone Mclain M.D. 11/19/2021 10:17 PM Shoulder X-Ray 11/19/21 21:46 XR shoulder LT min 2V routine CLINICAL HISTORY: found down. COMPARISON STUDY: No previous studies for comparison. TECHNIQUE: 2 left shoulder views FINDINGS: Bones: There is suspicion of a vertically oriented fracture through the base of the tuberosity of the humerus. CT would be the study of choice for further evaluation. There is no lytic or blastic lesion. Joints: The joint spaces are maintained. The bones are in anatomic alignment. Soft tissues: There is no focal soft tissue abnormality. There is no radiopaque foreign body. IMPRESSION: Suspicion of a vertically oriented fracture through the base of the tuberosity of the humerus. CT of the left shoulder with the study of choice for further evaluation. ACT 112: Negative or not required by law. Electronically signed by: Ramone Mclain M.D. 11/19/2021 10:22 PM ECG Data Indication: + altered mental status Rate (beats per minute): 109 Rhythm: + normal sinus ECG Intervals/blocks: + Normal MD and + Normal QT-c ECG ST segments: + Normal ST segments Additional Comments: QRS 74 MDM Narrative 2037: The patient was evaluated in room B1. A complete history and physical exam was performed Cardiac monitoring: An order was placed for continuous cardiac monitoring. The monitor shows a rate of 110 with sinus tachycardia rhythm Large-bore IV access was obtained and IV fluids were started. Rectal temperature of the patient was 34 C. Patient was started on Aminata hugger. Warm IV fluids ordered for the patient. Patient Hemoccult positive. Protonix IV bolus and drip ordered for the patient. 2102: Liliya geothermal operations manager was able to access patient's chart in the medical center which does show that the patient is on Coumadin. Son is now at bedside and confirms that the patient is on Coumadin. The son states that he found the patient on the ground in her home at 1830 tonight. He states that he does not live with her but checks in on her frequently. He states he saw her last night around 2100 and she was normal. Son states that he is the patient's healthcare power of assistant district attorney and that the patient is a DNR/DNI. 2120: At CT scan the patient had a seizure that lasted less than 1 minute. Patient was brought back to the resuscitation bay and Ativan 1 mg ordered for the patient. Son again confirms that the patient is a DNR/DNI. 2199: Anderson catheter placed in the patient via nursing. After Anderson catheter was placed the patient's temperature at 38.2. Bear hugger was discontinued and the patient was given Tylenol [address] of the head, C-spine, facial bones, and abdomen pelvis showed no acute traumatic injury. Labs show white blood count count of 11.2. Hemoglobin 13.8. INR 1.1. Labs are also significant for lactate of 2.8. Troponin 0.05. Creatinine kinase 863. Given the patient had a seizure Keppra 1 g IV piggyback ordered for the patient. It is difficult to tell if the patient is septic given the lactic acid EMEA as well as the hypothermia now hypothermia. Broad-spectrum antibiotics started on the patient vancomycin and cefepime. [facility] Discussed with Dr. Katz who accepts the patient. 2244: X-ray shows possible humerus fracture. Patient placed in sling. [facility] hospitalist order CAT scan. Impression & Plan Acute GI bleeding, Lactic acidemia, Seizure, Rhabdomyolysis, Fracture, humerus closed Discharge Plan Visit Data Chief Complaint: Unresponsive Stated Complaint: Bleeding, Unresponsive Discharge Problem: Acute GI bleeding, Lactic acidemia, Seizure, Rhabdomyolysis, Fracture, humerus closed Patient Disposition: Admitted As Inpatient Forms Stand Alone Forms: [facility] Prescriptions Prescriptions: No Action atorvastatin 20 mg Tablet 20 mg PO DAILY RF: 0 amlodipine [Norvasc] 5 mg Tablet 5 mg PO DAILY RF: 0 lorazepam 0.5 mg Tablet 0.5 mg PO BID PRN (Reason: Anxiety) RF: 0 meclizine 25 mg Tablet 25 mg PO TID RF: 0 potassium citrate 10 mEq (1,080 mg) Tablet Extended Release 10 meq PO DAILY RF: 0 levothyroxine 50 mcg tablet 50 mcg PO DAILY RF: 0 warfarin [Coumadin] 2 mg Tablet 0 mg PO DAILY RF: 0 Low-Dose Aspirin 81 mg Tablet 81 mg PO DAILY RF: 0 hydrochlorothiazide 25 mg Tablet 25 mg PO DAILY RF: 0 propranolol 120 mg capsule,extended release 24 hr 240 mg PO DAILY RF: 0 cholecalciferol (vitamin D3) [Vitamin D3] 25 mcg (1,000 unit) Capsule 25 mcg PO DAILY RF: 0 Ocuvite Tablet 1 tab PO DAILY RF: 0 calcium carbonate-vitamin D3 [Calcium 600 + D(3)] 600 mg-10 mcg (400 unit) Tablet 2 tab PO DAILY RF: 0 magnesium oxide 400 mg magnesium Tablet 400 mg PO DAILY RF: 0 Referrals Referrals: PCP,NO [Primary Care Provider] -
--- NOTE | 2021-11-20 00:13 | CT Scan Report ---
CT shoulder LT wo con CLINICAL HISTORY: Left shoulder injury with suspicion of nondisplaced fracture on x-rays. [facility] evaluate COMPARISON STUDY: Standard radiographs from 11/19/2021 CT DOSE: 306.92 mGy.cm TECHNIQUE: Standard CT of the is performed without IV contrast. Multiplanar reconstruction is perform ed. A dose lowering technique was utilized adhering to the principles of ALARA. FINDINGS: Bones: There is no evidence for an acute humeral head fracture is suspected. However, there is cortic al irregularity of the humeral head superolaterally which is most characteristic of an old impacted f racture. There is no evidence for dislocation. There are no lytic or blastic lesions. Joints: There is mild narrowing of the glenohumeral joint and acromioclavicular joint with degenerat rivera changes present. The bones are in anatomic alignment. Soft tissues: There is no focal soft tissue swelling. There are no focal fluid collections. IMPRESSION: No acute osseous pathology. However, there is an old, impacted fracture of the humeral he ad superolaterally. 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 ACT 112: Negative or not required by law. Electronically signed by: Ramone Mclain M.D. 11/20/2021 12:11 AM
--- NOTE | 2021-11-20 00:56 | History and Physical Report ---
DATE OF ADMISSION: 11/19/2021. CHIEF COMPLAINT: Unresponsiveness. 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 As per son, the patient is generally active, she can take care of herself, and she has no other complaints. Yesterday he was with his mother from 6 to 9 p.m. and she was doing fine and today around 6:30pm when he went to visit her, he found her in the bedroom unresponsive in a pool of blood. He had thought that the patient might have vomited blood because he witnessed similar episode with his father in the past. Her son called EMS and she was brought in here. She has blood all over the face and the extremities. No obvious source of bleeding. As per Nursing staff when she came in as per doctor, she could tell her name and she said that she was cold. Her temperature was 34. She was given warm fluids and placed on licha hugger, and temperature is improving .She is on Coumadin for DVT as per the son but her INR only 1.1. During CAT scan, she had an episode of seizure less than 1 minute. She was loaded with Keppra and given IV Ativan. With IV Ativan, currently she is mostly drowsy, moves her extremities, moves more on the right side than the left side. Imaging studies, she had a CT of the head, CT of the face, cervical spine CT with CT abdomen and pelvis, chest x-ray, shoulder x-ray and pelvic x-ray. Shoulder x-ray showing possible fracture of the base of the tuberosity of the humerus on the left side and bilateral maxillary and right sphenoid sinusitis. Otherwise, all of the imaging studies are unremarkable. As per son, there was no recent illnesses. During Muddy time, she had a booster dose of COVID vaccine. After that, she was sick for 1 week with diarrhea, but it got resolved. Otherwise, she is doing fine.Could not get any history from the patient. ALLERGIES: METRONIDAZOLE. PAST MEDICAL HISTORY: As mentioned above. PAST SURGICAL HISTORY: Breast biopsy was benign, Lasering of secondary cataract, cataract surgery bilateral, total hysterectomy. MEDICATIONS: The patient seems to be on amlodipine 5 mg p.o. daily, aspirin 81 mg p.o. daily, atorvastatin 20 mg p.o. daily, calcium plus vitamin D two tablets p.o. daily, vitamin D 25 mcg p.o. daily, hydrochlorothiazide 25 mg p.o. daily, levothyroxine 50 mcg p.o. daily, Ativan 0.5 mg p.o. b.i.d. p.r.n., magnesium oxide 400 mg p.o. daily, meclizine 25 mg p.o. t.i.d. potassium citrate 10 mEq p.o. daily, propranolol 240 mg p.o. daily, Ocuvite one tablet p.o. daily, Coumadin as directed. FAMILY HISTORY: Significant for mother had eye problems, emphysema; father has heart disorder, neurological disorder, Maternal grandmother has cancer. SOCIAL HISTORY: , lives alone. Former smoker, smoked for 12 years. Alcohol, daily as per Epic. No drug use. REVIEW OF SYSTEMS: As per HPI. Rest of review of systems could not get any response. The patient is currently mostly unresponsive. PHYSICAL EXAMINATION: GENERAL: The patient is drowsy. Moves extremities on painful stimuli, more on the right side. VITAL SIGNS: Temperature 34, pulse 99, respiratory rate 20, blood pressure 161/77, oxygen 100% on 2 liters. HEENT: Pupils small and sluggish reactive to light, drying of the blood seen on the face. NECK: No neck masses seen. CARDIOVASCULAR: S1 and S2 heard. Regular rate and rhythm. No murmur, no gallop. RESPIRATORY SYSTEM: Normal AP diameter. No accessory muscle use. No wheezing, no crackles. ABDOMEN: Soft, bowel sounds present, no distention, CENTRAL NERVOUS SYSTEM: Mostly unresponsive. Moves extremities on painful stimuli, more on the right side. EXTREMITIES: No edema, no erythema. LABORATORY DATA: WBC 11.2, hemoglobin 13.8, hematocrit 41, platelets 316. PT 10.8, INR 1.1, APTT 24.7. Venous blood gas, pH of 7.3, pCO2 of 41, pO2 of 20, bicarbonate 23. Sodium 137, potassium 4.7, chloride 99, CO2 of 22, BUN 29, creatinine 0.8, serum glucose 101. Lactate 2.8, calcium 8.8, magnesium 2.2, total bilirubin 0.7, direct bilirubin 0.1, AST 22, ALT 30, alkaline phosphatase 65. Total creatine kinase is 863, troponin I 0.05. Urinalysis, +1 ketones, ethyl alcohol less than 3. SARS-CoV-2 RNA negative. DATA: Left shoulder x-ray: Suspicion of vertically oriented fracture through the base of the tuberosity of the humerus. Pelvic x-ray: No acute abnormality. CT of the head: No acute abnormalities. Right sphenoid and bilateral maxillary sinusitis. Face CT bilateral maxillary and right sphenoid sinusitis. Chest x- ray: No acute cardiopulmonary disease. Cervical spine CT: Osteopenia with no acute abnormality, degenerative disk and degenerative joint disease. CT of abdomen and pelvis: No acute intraabdominal or pelvic abnormality. EKG: Sinus tachycardia at a rate of 109, no previous is available. Possible left atrial enlargement. ASSESSMENT AND PLAN: This is an 86-year-old female, who was found unresponsive at home. 1. Unresponsive. The patient had episode of seizures while getting the CAT scan, rule out seizures. The patient was given IV Ativan and loaded with Keppra. We will continue with Keppra 500 IV b.i.d., IV Ativan p.r.n. for breakthrough seizures. Ordered EEG. CT head is okay. Venous blood gases are okay. Labs look okay so far. Empirically started on antibiotics, which we will continue. Follow in the telemetry. If any concern, we will consult cardiology. Hypothermia could be placing a role. If necessary, we will get MRI scan. Await neuro input. 2. Hypothermia. Improved with warm fluids and licha hugger. To continue licha hugger. We will check the thyroid profile. We will monitor. Placed on antibiotics with Zosyn and vancomycin for possible sepsis. Continue. Follow the cultures. 3. Mild rhabdomyolysis. CK of 863, because the patient was lying on the floor, follow the repeat labs in the a.m., continue fluids. 4. Mild elevation of troponin. Follow the serial enzymes and echo. If any concern, consult cardiology. 5. Hypertension. Holding her home medication of hydrochlorothiazide, propranolol, amlodipine, place on IV labetalol p.r.n. 6. Hyperlipidemia. Holding statin for now. To restart when the patient is able to. 7. Panic disorder, on Ativan p.r.n. The patient will be on IV Ativan p.r.n. 8. Possible GI bleed.. Follow Hemoccult. Start on Protonix drip. Follow H and H. Blood consent obtained from the son. GI consult in a.m. 9.Left Humerus fracture. Sling ordered by ER. Ordered ct left shoulder. Consulted ortho. 10. Hx of DVT Couple of years ago as per son. On Coumadin. INR only 1.1. Holding Coumadin for bleeding. 11..DVT prophylaxis.Sequential compression devices for now. DISPOSITION: Closely monitor in the tele floor. To be determined. CODE STATUS: DNR/DNI as per discussion with the son. Job ID: [id number] MTDD
[2021-11-20] MEDS ORDERED: PIPERACILL/TAZOBAC CONSULT ACTIVE PRN (01:56)
[2021-11-20] MEDS ORDERED: NITROGLYCERIN SL 0.4 MG/TAB TAB SL PRN (01:56)
[2021-11-20] MEDS ORDERED: ONDANSETRON INJ 2 MG/ML 2 ML VIAL IV PRN (01:56)
[2021-11-20] MEDS ORDERED: LABETALOL HCL IV 5 MG/ML 20ML IV PRN (01:56)
[2021-11-20] MEDS ORDERED: VANCOMYCIN CONSULT ACTIVE PRN (01:56)
[2021-11-20] MEDS ORDERED: PIPERACILLIN/TAZOBACTAM 4.5 GM/120 ML BAG IV STA (02:10)
[2021-11-20] MEDS ORDERED: PATIENT'S HEIGHT AND/OR WEIGHT NEEDED SCH (02:15)
[2021-11-20] MEDS: PANTOprazole 40 MG in DEXTROSE 5% 100 ML IV SCH ×5 (02:52→23:05)
[2021-11-20] MEDS: SODIUM CHLORIDE 0.9% 1000ML 1,000 ML IV SCH ×3 (02:54→23:04)
--- NOTE | 2021-11-20 04:12 | Pharmacy Report ---
Pharmacy Vanc AUC Short Note - Date of Service November 20, 2021 - Assessment & Plan Assessment 86 year old F receiving Vancomycin and Zosyn for empiric treatment of sepsis. * Afebrile. Patient hypothermic, warmed upon arrival. SCr 0.85 mg/dL, CrCl 49 mL/min. Lactate elevated at 2.8, improved to 1.4 with fluids. * Cultures pending. Plan Vancomycin * AUC/YAKELIN is the preferred PK/PD target for vancomycin * AUC guided dosing is effective and associated with decreased risk of nephrotoxicity compared to traditional trough targets * Loading dose of 1500 mg IV x 1 * Maintenance dose of 1250 mg IV every 24 hours is expected to achieve goal AUC/YAKELIN of 400-600 mg/L.hr with an associated 9% risk of nephrotoxicity * No trough ordered at this time given extended dosing interval Pharmacy will continue to follow and will adjust dose/frequency as necessary. Thank you.
[2021-11-20 05:43] LABS: Basophils # (auto) 0.01 K/uL (0-0.2); Basophils % (auto) 0.1 %; Hematocrit (blood only) 31.1 % (37-47); Hemoglobin 10.1 g/dL (12.0-16.0); Immature Granulocytes # (auto) 0.02 K/uL (0.00-0.02); Immature Granulocytes % (auto) 0.2 %; Lymphocytes # (auto) 2.02 K/uL (1.2-3.4); Lymphocytes % (auto) 20.9 %; Mean Corpuscular Hemoglobin 31.4 pg (25-34); Mean Corpuscular Hgb Conc 32.5 g/dL (32-36); Mean Corpuscular Volume 96.6 fL (80-100); Mean Platelet Volume 9.1 fL (7.4-10.4); Monocytes # (auto) 0.95 K/uL (0.11-0.59); Monocytes % (auto) 9.8 %; Neutrophils # (auto) 6.68 K/uL (1.4-6.5); Platelet Count 239 K/uL (130-400); RDW Coefficient of Variation 13.3 % (11.5-14.5); RDW Standard Deviation 46.3 fL (36.4-46.3); Red Blood Count 3.22 M/uL (4.2-5.4); White Blood Count 9.68 K/uL (4.8-10.8)
[2021-11-20 05:55] LABS: Troponin I 0.15 ng/ml (0-0.04)
[2021-11-20] MEDS: PIPERACILLIN/TAZOBACTAM 3.375 GM in DEXTROSE 5% 100 ML IV SCH ×2 (08:10→17:34)
[2021-11-20] MEDS: levETIRAcetam 500 MG in 0.9 % SODIUM CHLORIDE 100 ML IV SCH ×2 (08:17→22:05)
[2021-11-20 09:01] LABS: BUN Creatinine Ratio 29.6 (10-20); Calcium 7.7 mg/dl (8.5-10.1); Creatinine Clr Calc Pharmacy 59.1 ml/min; Est GFR (African American) 88.8 ml/min; Est GFR (Non-African American) 76.6 ml/min; Magnesium 1.9 mg/dl (1.7-2.4); Potassium 3.7 mmol/L (3.5-5.1)
--- NOTE | 2021-11-20 09:48 | Electrocardiogram Report ---
Test Reason : Blood Pressure : / mmHG Vent. Rate : 109 BPM Atrial Rate : 109 BPM P-R Int : 140 ms QRS Dur : 074 ms QT Int : 358 ms P-R-T Axes : 067 011 083 degrees QTc Int : 482 ms Poor data quality, interpretation may be adversely affected Sinus tachycardia Possible Left atrial enlargement Possible Inferior infarct , age undetermined Abnormal ECG No previous ECGs available Confirmed by Leroy Grewal ([id number]) on 11/20/2021 9:48:13 AM Referred By: REFERRED SELF Confirmed By:Percy Grewal
--- NOTE | 2021-11-20 10:14 | Electroencephalogram ---
EEG Procedure Note Date of Service November 20, 2021 Start / End Times Start Time: 830 End Time: [address] Katz History Recurrent seizures and confusion Home Medication List Medication Instructions Recorded Confirmed Type amlodipine 5 mg tablet (Norvasc) 5 mg PO DAILY 11/19/21 11/19/21 History aspirin 81 mg tablet 81 mg PO DAILY 11/19/21 11/19/21 History atorvastatin 20 mg tablet 20 mg PO DAILY 11/19/21 11/19/21 History calcium carbonate 600 mg-vitamin 2 tab PO DAILY 11/19/21 11/19/21 History D3 10 mcg (400 unit) tablet (Calcium 600 + D(3)) cholecalciferol (vitamin D3) 25 25 mcg PO DAILY 11/19/21 11/19/21 History mcg (1,000 unit) capsule (Vitamin D3) hydrochlorothiazide 25 mg tablet 25 mg PO DAILY 11/19/21 11/19/21 History levothyroxine 50 mcg tablet 50 mcg PO DAILY 11/19/21 11/19/21 History lorazepam 0.5 mg tablet 0.5 mg PO BID PRN 11/19/21 11/19/21 History magnesium oxide 400 mg PO DAILY 11/19/21 11/19/21 History meclizine 25 mg tablet 25 mg PO TID 11/19/21 11/19/21 History potassium citrate 10 mEq (1,080 10 meq PO DAILY 11/19/21 11/19/21 History mg) tablet,extended release propranolol 120 mg capsule,24 240 mg PO DAILY 11/19/21 11/19/21 History hr,extended release vitamin A-vitamin C-vit E-min 1 tab PO DAILY 11/19/21 11/19/21 History tablet warfarin 2 mg tablet 0 mg PO DAILY 11/19/21 11/19/21 History Inpatient Medication List Pantoprazole Sodium 40 mg/ (Dextrose) 100 mls @ 20 mls/hr IV Q5H [facility]A Stop: 12/19/21 21:14 Last Admin: 11/20/21 08:10 Dose: 8 mg/hr, 20 mls/hr Documented by: [id number] Infusion: 11/20/21 07:52 Dose: 8 mg/hr, 20 mls/hr Documented by: [id number] Admin: 11/20/21 02:52 Dose: 8 mg/hr, 20 mls/hr Documented by: [id number] Infusion: 11/20/21 00:28 Dose: 8 mg/hr, 20 mls/hr Documented by: [id number] Infusion: 11/20/21 00:27 Dose: 0 mg/hr, 0 mls/hr Documented by: [id number] Admin: 11/19/21 21:32 Dose: 8 mg/hr, 20 mls/hr Documented by: [id number] Sodium Chloride (Nss 1000ml) 1,000 mls @ 100 mls/hr IV .Q10H PAULA Stop: 12/20/21 01:55 Last Admin: 11/20/21 02:54 Dose: 100 mls/hr Documented by: [id number] Piperacillin Sod/Tazobactam (Sod 3.375 gm/ Dextrose) 115 mls @ 28.75 mls/hr IV Q8H [facility]; Protocol Stop: 11/27/21 07:59 Last Admin: 11/20/21 08:10 Dose: 28.8 mls/hr Documented by: [id number] Levetiracetam 500 mg/ Sodium (Chloride) 105 mls @ 420 mls/hr IV Q12H [facility] Stop: 12/20/21 08:59 Last Infusion: 11/20/21 09:53 Dose: 0 mls/hr Documented by: [id number] Admin: 11/20/21 08:17 Dose: 420 mls/hr Documented by: [id number] Discontinued Medications Acetaminophen (Acetaminophen 1000 Mg/100 Ml Iv) 1,000 mg IV ONCE ONE Stop: 11/19/21 21:40 Last Admin: 11/19/21 21:58 Dose: 1,000 mg Documented by: [id number] Sodium Chloride (Nss 1000ml) 1,000 mls @ 999 mls/hr IV .Q1H1M ONE Stop: 11/19/21 21:39 Last Infusion: 11/19/21 22:42 Dose: 0 mls/hr Documented by: [id number] Admin: 11/19/21 21:12 Dose: 999 mls/hr Documented by: [id number] Pantoprazole Sodium (Protonix Bolus/Drip) 0 mls @ 1 mls/hr IV ONE STA Stop: 11/19/21 20:55 Last Infusion: 11/20/21 09:54 Dose: 0 mls/hr Documented by: [id number] Admin: 11/19/21 21:30 Dose: 1 mls/hr Documented by: [id number] Pantoprazole Sodium 80 mg/ (Dextrose) 120 mls @ 400 mls/hr IV NOW ONE Stop: 11/19/21 21:11 Last Infusion: 11/19/21 22:41 Dose: 0 mls/hr Documented by: [id number] Admin: 11/19/21 21:30 Dose: 400 mls/hr Documented by: [id number] Lorazepam (Ativan) 1 mg in 2 mls @ 2 mls/min IV NOW STA Stop: 11/19/21 21:20 Last Admin: 11/19/21 21:30 Dose: Not Given Documented by: [id number] Levetiracetam 1,000 mg/ Sodium (Chloride) 110 mls @ 440 mls/hr IV NOW STA Stop: 11/19/21 22:06 Last Infusion: 11/19/21 22:41 Dose: 0 mls/hr Documented by: [id number] Admin: 11/19/21 22:20 Dose: 440 mls/hr Documented by: [id number] Cefepime HCl (Maxipime) 2,000 mg in 20 mls @ 5 mls/min IV NOW STA; Protocol Stop: 11/19/21 22:03 Last Admin: 11/19/21 22:15 Dose: 5 mls/min Documented by: [id number] Vancomycin HCl 1,500 mg/ (Sodium Chloride) 530 mls @ 200 mls/hr IV NOW ONE Stop: 11/20/21 00:38 Last Infusion: 11/20/21 02:31 Dose: 0 mls/hr Documented by: [id number] Admin: 11/19/21 23:55 Dose: 200 mls/hr Documented by: [id number] Piperacillin Sod/Tazobactam Sod (Zosyn) 4.5 gm in 120 mls @ 240 mls/hr IV NOW STA Stop: 11/20/21 02:39 Last Infusion: 11/20/21 04:16 Dose: 0 mls/hr Documented by: [id number] Admin: 11/20/21 02:52 Dose: 240 mls/hr Documented by: [id number] Ioversol (Optiray 320 100ml) 93 ml IV ONCE ONE Stop: 11/19/21 21:07 Last Admin: 11/19/21 21:14 Dose: 93 ml Documented by: [id number] Lorazepam (Lorazepam 2 Mg/4 Ml Vial) Confirm Administered Dose 2 mg .ROUTE .[facility] [employer] ONE Stop: 11/19/21 21:19 Last Increment: 11/19/21 21:30 Dose: 1 mg Documented by: [id number] Description This is a 21 electrode EEG with a single channel dedicated to limited EKG. The electrodes were placed in accordance with the International 10-20 system. This EEG was done as a bedside recording and is of good technical quality. Video analysis of patient movement and behavior was obtained as was photic stimulation but drowsiness and light sleep not recorded. Under these conditions the patient appears to be disoriented and confused as described assessed by the sales and service technician. The recording shows no normal background alpha rhythm but rather a upper frequency theta rhythm at about 78 Hz maximal frequency and 30 V maximal amplitude which appears maximal in the posterior head regions and is bilaterally symmetrical. Polymorphic lower frequency theta delta activity of modest voltage is seen centrally and symmetrically without associated sharp waves or rhythmic qualities. Beta activity seen bifrontally Photic stimulation provokes minimal driving response No potentially epileptogenic features are noted Interpretation This is a mildly diffusely abnormal EEG consistent with a generalized nonfocal encephalopathy without associated potentially epileptogenic features but the absence of these does not exclude the diagnosis of seizure disorder Clinical Correlation See above. Current tracing is consistent with a nonspecific encephalopathy possibly postictal state, demonstrates no lateralizing features and does not show any evidence for ongoing potentially epileptogenic discharges but as noted above there absence does not exclude the diagnosis of a seizure disorder Juan Jaffe MD
--- NOTE | 2021-11-20 10:25 | Gastrointestinal Consultation ---
Date of Consultation November 20, 2021 Assessment & Plan (1) Acute GI bleeding: Pt is a 86 yo female seen for possible hematemesis. Found unresponsive by son at home, with a pool of blood which he suspected she had vomited. On eval noted to have L humeral fracture, having bacteremia in 1/2 blood cx. She was hypothermic, and developed seizures while undergoing CT scans. Her blood ct dropped this AM but no reports of hematemesis or melena. Additionally BUN is not significantly elevated. - Would continue to hold Coumadin in light of suspected GI bleeding - Keep NPO - Continue PPI gtt - Monitor blood ct and transfuse prn - Will discuss with her son about my evaluation this AM. Recommend deferring endoscopic evaluations given no venecia s/s of active GI bleeding. Additionally she has a new onset of seizures, and is undergoing EEG eval. Also her Troponin are rising. Thus if she needs to undergo any endoscopies would need Neurology & Cardiology clearances. Supervising Physician Co-Signing Physician Notes Consult for possible hematemesis. Found down yesterday reportedly in a pool of blood. 3 gram drop in hgb withou a bun rise. Patient remains unresponsive this am. On exam - unresponsive, perrla, abd soft nt nd, no visible blood seen hgb 10, bun normal, ck elevated, troponin elevated Suspect she may have been hypothermic with rhabdomyolysis, not known to be cirrhotic per imaging, limited histor otherwise. Given no venecia signs of GI bleed - would recommend IV PPI for now. Agree with further plan of care as below. History of Present Illness Reason for Consultation: GI bleeding Requesting Physician: Dr. Sj Casillas Attending Physician: Dr. Nasima Miguel History of Present Illness Pt is unresponsive and currently undergoing EEG. Unable to obtain history from her. Chart is reviewed. 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 She was found unresponsive by her son at home and he noted also a pool of blood which he suspected she had vomited out. On eval in ED she was hypothermic and when she underwent CT scans, she had an episode of seizures. She is COVID [address] abd/pelvis unremarkable. She is noted to have L humerus fracture. Lab adam, she was noted to have Hgb of 13 on admission, this AM it's 10. Plt, INR normal. No significant rise of BUN. She did have elevated CK and rising Troponin. 1 out of 2 blood cx is growing Gram negative bacilli. Allergies Allergy/AdvReac Type Severity Reaction Status Date / Time metronidazole Allergy Mild Unknown Verified 11/19/21 21:15 Home Medications Medication Instructions Recorded Confirmed Type amlodipine 5 mg tablet (Norvasc) 5 mg PO DAILY 11/19/21 11/19/21 History aspirin 81 mg tablet 81 mg PO DAILY 11/19/21 11/19/21 History atorvastatin 20 mg tablet 20 mg PO DAILY 11/19/21 11/19/21 History calcium carbonate 600 mg-vitamin 2 tab PO DAILY 11/19/21 11/19/21 History D3 10 mcg (400 unit) tablet (Calcium 600 + D(3)) cholecalciferol (vitamin D3) 25 25 mcg PO DAILY 11/19/21 11/19/21 History mcg (1,000 unit) capsule (Vitamin D3) hydrochlorothiazide 25 mg tablet 25 mg PO DAILY 11/19/21 11/19/21 History levothyroxine 50 mcg tablet 50 mcg PO DAILY 11/19/21 11/19/21 History lorazepam 0.5 mg tablet 0.5 mg PO BID PRN 11/19/21 11/19/21 History magnesium oxide 400 mg PO DAILY 11/19/21 11/19/21 History meclizine 25 mg tablet 25 mg PO TID 11/19/21 11/19/21 History potassium citrate 10 mEq (1,080 10 meq PO DAILY 11/19/21 11/19/21 History mg) tablet,extended release propranolol 120 mg capsule,24 240 mg PO DAILY 11/19/21 11/19/21 History hr,extended release vitamin A-vitamin C-vit E-min 1 tab PO DAILY 11/19/21 11/19/21 History tablet warfarin 2 mg tablet 0 mg PO DAILY 11/19/21 11/19/21 History Patient History Medical History (Updated 11/19/21 @ 23:19 by Jeronimo Heard) HLD (hyperlipidemia) HTN (hypertension) No pertinent family history Surgical History (Updated 11/19/21 @ 23:05 by Jeronimo Heard) No pertinent past surgical history Social History Smoking Status: Unknown if ever smoked Current Living Situation: Alone Assistive Devices: None Review of Systems Review of Systems: Unable to obtain from pt, she is unresponsive Physical Exam Constitutional: Unresponsive ; she is undergoing EEG, thus unable to physically examine her Respiratory: No signs of respiratory distress or use of accessory muscles noted Results & Data ([facility]) Vital Signs (Past 12 Hours) Vital Signs Temp Pulse Pulse Resp BP Pulse Ox 11/20/21 07:38 93 H 11/20/21 06:25 37.5 C 104 H 18 118/63 100 11/20/21 06:00 38.0 C H 89 16 116/76 100 11/20/21 03:22 88 16 100/54 L 100 11/20/21 01:56 38.5 C H 106 H 16 122/64 100 11/19/21 22:20 99 H 20 161/77 H 100
[2021-11-20 11:38] LABS: Hematocrit (blood only) 28.3 % (37-47); Hemoglobin 9.5 g/dL (12.0-16.0)
--- NOTE | 2021-11-20 12:46 | Neurology Consultation ---
Date of Consultation November 20, 2021 Assessment & Plan (1) CVA (cerebral vascular accident): 1. plavix 75 mg and aspirin 81 mg daily- will need to hold for now due to possible GI bleed 2. liberalize blood pressure 3. then optimize HTN, HLD, LDL <70 consider patients age 4. PT/OT for discharge needs 5. GI consulted for possible GI bleed work up 6. would contact [facility] for recommendation to direct treatment of infection 7. needs CTA head and neck or MRA head neck for vascular evaluation 8. TTE - no ASD (2) Seizure: 1. EEG- with no seizure focus 2. continue Keppra 500 mg q 12 hours 3. no driving for 6 months from last seizure date, no heights, no bathing or swimming alone 4. avoid ativan for seizure activity, load phenytoin if needed. Supervising Physician Co-Signing Physician Notes I have seen and discussed above patient with Dr Juan Jaffe, neurology I reviewed the above note, examined the patient briefly in the presence of her son and have gone over imaging studies. 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, has gram-negative organisms on blood cultures, and elevated CK likely due to rhabdomyolysis, and EEG which shows generalized slowing but no clear-cut potentially epileptogenic discharges and is being appropriately treated with Keppra for seizures is being evaluated by multiple subspecialties Obviously we are not going off anticoagulation until the issue of the bleeding source is addressed She needs some form of imaging of her extracranial vasculature and an echocardiogram and needs monitored for paroxysmal atrial fibrillation all of which is underway I do not think she needs a lumbar puncture We have suggested to her attending that infectious disease be consulted regarding the gram-negative organisms and appropriate treatment We will return tomorrow for another assessment At present she is very lethargic is a pretty dense left hemiparesis and head and eye deviation to the right all of which is consistent with her cerebrovascular accident localization Juan Jaffe MD History of Present Illness Reason for Consultation: unresponsive. seizures? 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 was found unresponsive at home by her son. She takes care of herself, and she has no other complaints. Her son was with his mother from 6 to 9 p.m the day prior. and she was doing fine and today around 6:30pm when he went to visit her, he found her in the bedroom unresponsive in a pool of blood. He had thought that the patient might have vomited blood because he witnessed similar episode with his father in the past. Her son called EMS and was broug ht to [facility] ED 11/19/2021. She has blood all over the face and the extremities. Her temperature was 34 she was giiven warm fluids and placed on bear hugger, and temperature is improving .She is on Coumadin for DVT as per the son but her INR only 1.1. She had an episode of seizure less than 1 minute. She was loaded with Keppra and given IV Ativan.She was then drowsy, moves her extremities, moves more on the right side than the left side. she is still drowsy but is following commands. Son is bedside and was told by a relative that she had a bad nose bleed on Saturday. Allergies Allergy/AdvReac Type Severity Reaction Status Date / Time metronidazole Allergy Mild Unknown Verified 11/19/21 21:15 Home Medications Medication Instructions Recorded Confirmed Type amlodipine 5 mg tablet (Norvasc) 5 mg PO DAILY 11/19/21 11/19/21 History aspirin 81 mg tablet 81 mg PO DAILY 11/19/21 11/19/21 History atorvastatin 20 mg tablet 20 mg PO DAILY 11/19/21 11/19/21 History calcium carbonate 600 mg-vitamin 2 tab PO DAILY 11/19/21 11/19/21 History D3 10 mcg (400 unit) tablet (Calcium 600 + D(3)) cholecalciferol (vitamin D3) 25 25 mcg PO DAILY 11/19/21 11/19/21 History mcg (1,000 unit) capsule (Vitamin D3) hydrochlorothiazide 25 mg tablet 25 mg PO DAILY 11/19/21 11/19/21 History levothyroxine 50 mcg tablet 50 mcg PO DAILY 11/19/21 11/19/21 History lorazepam 0.5 mg tablet 0.5 mg PO BID PRN 11/19/21 11/19/21 History magnesium oxide 400 mg PO DAILY 11/19/21 11/19/21 History meclizine 25 mg tablet 25 mg PO TID 11/19/21 11/19/21 History potassium citrate 10 mEq (1,080 10 meq PO DAILY 11/19/21 11/19/21 History mg) tablet,extended release propranolol 120 mg capsule,24 240 mg PO DAILY 11/19/21 11/19/21 History hr,extended release vitamin A-vitamin C-vit E-min 1 tab PO DAILY 11/19/21 11/19/21 History tablet warfarin 2 mg tablet 0 mg PO DAILY 11/19/21 11/19/21 History Patient History Medical History (Updated 11/20/21 @ 14:13 by Karen Robertson PA-C) HLD (hyperlipidemia) HTN (hypertension) No pertinent family history Surgical History (Updated 11/19/21 @ 23:05 by Jeronimo Heard) No pertinent past surgical history Social History Smoking Status: Unknown if ever smoked Current Living Situation: Alone Assistive Devices: None Review of Systems Review of Systems: Unobtainable due to mental health condition Physical Exam Physical Exam: Physical Exam: Constitutional:appearance over nourished, healthy Ears, Nose, Mouth and Throat: mouth dry , tongue left sided laceration Cardiovascular: normal S-1 and S-2 and regular rate and rhythm Respiratory: course breath sounds Musculoskeletal: peripheral edema bilateral LE Skin: no stigmata of neurocutaneous disease noted and normal and intact Eyes: extraocular muscles intact (EOMI) and pupils equal, round and reactive to light (PERRL) NEUROLOGIC EXAMINATION: Mental status: Alert with stimulation Oriented to person Speech is not speaking but understands commands Cranial Nerves left nasolabial fold flattened Sensory: intact to light cool touch, GT proprioception intact Coordination: unable to test Gait/Stance: Posture lying in bed strength: hand cotton expert right 5/5 left 3/5, biceps triceps right 5/5 left 1/5, hip flex right 4+/5, left 0/5 Results & Data ([facility]) Vital Signs (Past 12 Hours) Vital Signs Temp Pulse Pulse Resp BP Pulse Ox 11/20/21 11:52 37.0 C 100 H 18 130/68 100 11/20/21 07:38 93 H 11/20/21 06:25 37.5 C 104 H 18 118/63 100 11/20/21 06:00 38.0 C H 89 16 116/76 100 11/20/21 03:22 88 16 100/54 L 100 11/20/21 01:56 38.5 C H 106 H 16 122/64 100 Laboratory Results Abnormal lab results 11/19/21 11/19/21 11/19/21 Range/Units 20:51 20:51 20:51 WBC 11.25 H (4.8-10.8) K/uL RBC (4.2-5.4) M/uL Hgb (12.0-16.0) g/dL Hct (37-47) % RDW Std Deviation 46.4 H (36.4-46.3) fL MPV 10.5 H (7.4-10.4) fL Neut # (Auto) 8.47 H (1.4-6.5) K/uL [place] # (Auto) 0.62 H (0.11-0.59) K/uL Immature Gran # (Auto) 0.06 H (0.00-0.02) K/uL POC Total CO2 (24-31) mmol/L Anion Gap 16 H (3-11) POC BUN (7-18) mg/dl BUN 29 H (6-23) mg/dl BUN/Creatinine Ratio 34.1 H (10-20) Glucose 101 H (70-99(Fasting)) mg/dl POC Glucose (other) (70-99) mg/dl Lactate 2.8 H* (0.4-2.0) mmol/L Calcium (8.5-10.1) mg/dl POC Ioniz Calcium Jono (1.12-1.32) mmol/l Total Creatine Kinase 863 H (26-192) U/L Troponin I 0.05 H* (0-0.04) ng/ml Urine Protein (Negative) Urine Ketones (Negative) U Epithel Cells (Auto) (0-5) /lpf 11/19/21 11/19/21 11/20/21 Range/Units 20:53 21:29 04:55 WBC (4.8-10.8) K/uL RBC 3.22 L (4.2-5.4) M/uL Hgb 10.1 L D (12.0-16.0) g/dL Hct 31.1 L (37-47) % RDW Std Deviation (36.4-46.3) fL MPV (7.4-10.4) fL Neut # (Auto) 6.68 H (1.4-6.5) K/uL [place] # (Auto) 0.95 H (0.11-0.59) K/uL Immature Gran # (Auto) (0.00-0.02) K/uL POC Total CO2 22 L (24-31) mmol/L Anion Gap (3-11) POC BUN 27 H (7-18) mg/dl BUN (6-23) mg/dl BUN/Creatinine Ratio (10-20) Glucose (70-99(Fasting)) mg/dl POC Glucose (other) 107 H (70-99) mg/dl Lactate (0.4-2.0) mmol/L Calcium (8.5-10.1) mg/dl POC Ioniz Calcium Jono 1.11 L (1.12-1.32) mmol/l Total Creatine Kinase (26-192) U/L Troponin I (0-0.04) ng/ml Urine Protein 1+ H (Negative) Urine Ketones 1+ H (Negative) U Epithel Cells (Auto) 10-20 H (0-5) /lpf 11/20/21 11/20/21 11/20/21 Range/Units 04:55 04:55 11:25 WBC (4.8-10.8) K/uL RBC (4.2-5.4) M/uL Hgb 9.5 L (12.0-16.0) g/dL Hct 28.3 L (37-47) % RDW Std Deviation (36.4-46.3) fL MPV (7.4-10.4) fL Neut # (Auto) (1.4-6.5) K/uL [place] # (Auto) (0.11-0.59) K/uL Immature Gran # (Auto) (0.00-0.02) K/uL POC Total CO2 (24-31) mmol/L Anion Gap 12 H (3-11) POC BUN (7-18) mg/dl BUN (6-23) mg/dl BUN/Creatinine Ratio 29.6 H (10-20) Glucose 142 H (70-99(Fasting)) mg/dl POC Glucose (other) (70-99) mg/dl Lactate (0.4-2.0) mmol/L Calcium 7.7 L (8.5-10.1) mg/dl POC Ioniz Calcium Jono (1.12-1.32) mmol/l Total Creatine Kinase 590 H (26-192) U/L Troponin I 0.15 H* (0-0.04) ng/ml Urine Protein (Negative) Urine Ketones (Negative) U Epithel Cells (Auto) (0-5) /lpf 11/20/21 Range/Units 11:25 WBC (4.8-10.8) K/uL RBC (4.2-5.4) M/uL Hgb (12.0-16.0) g/dL Hct (37-47) % RDW Std Deviation (36.4-46.3) fL MPV (7.4-10.4) fL Neut # (Auto) (1.4-6.5) K/uL [place] # (Auto) (0.11-0.59) K/uL Immature Gran # (Auto) (0.00-0.02) K/uL POC Total CO2 (24-31) mmol/L Anion Gap (3-11) POC BUN (7-18) mg/dl BUN (6-23) mg/dl BUN/Creatinine Ratio (10-20) Glucose (70-99(Fasting)) mg/dl POC Glucose (other) (70-99) mg/dl Lactate (0.4-2.0) mmol/L Calcium (8.5-10.1) mg/dl POC Ioniz Calcium Jono (1.12-1.32) mmol/l Total Creatine Kinase (26-192) U/L Troponin I 0.10 H* (0-0.04) ng/ml Urine Protein (Negative) Urine Ketones (Negative) U Epithel Cells (Auto) (0-5) /lpf Diagnostic Findings CT abd/pelvis- 1. No acute intra-abdominal or pelvic abnormality. The study is limited by breathing motion artifact. CT c spine-Osteopenia with no acute abnormality. Degenerative disc and degenerative joint disease. CXR-No acute cardiopulmonary disease. CT face-No acute abnormality. Bilateral maxillary and right sphenoid sinusitis. CT head- No acute intracerebral pathology. Mild cerebral cortical atrophy. Right sphenoid and bilateral maxillary sinusitis. xray pelvis-No acute abnormality. Degenerative changes. Xray shoulder-Suspicion of a vertically oriented fracture through the base of the tuberosity of the humerus. CT of the left shoulder with the study of choice for further evaluation. CT shoulder-No acute osseous pathology. However, there is an old, impacted fracture of the humeral head superolaterally. 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 MRI brain- Large acute to subacute infarct involving the posterior right MCA territory. There are additional punctate foci of acute to subacute ischemia within the right frontal lobe and right subinsular cortex. These findings suggests an embolic phenomenon. There is no hemorrhage or midline shift. EEG-This is a mildly diffusely abnormal EEG consistent with a generalized nonfocal encephalopathy without associated potentially epileptogenic features but the absence of these does not exclude the diagnosis of seizure disorder TTE- 60-65% EF and no ASD MRI brain -Large acute to subacute infarct involving the posterior right MCA territory. There are additional punctate foci of acute to subacute ischemia within the right frontal lobe and right subinsular cortex. These findings suggests an embolic phenomenon. There is no hemorrhage or midline shift.
--- NOTE | 2021-11-20 14:25 | Magnetic Resonance Report ---
MRI OF THE BRAIN COMBO CLINICAL HISTORY: Seizure. COMPARISON STUDY: CT of the brain dated 11/19/2021. TECHNIQUE: MRI of the brain was performed utilizing various T1 and T2-weighted sequences in the axial , sagittal, and coronal planes. Contrast-enhanced sequences were acquired following the administratio n of 7.5 cc of Gadavist. The examination is degraded by motion artifact. FINDINGS: Brain parenchyma: There is a large region of restricted diffusion seen involving the high right front oparietal cortex. This is in the posterior MCA distribution. There are additional punctate foci of re stricted diffusion in the right frontal and right subinsular cortex. There is age-related involutiona l change noting moderate subcortical and periventricular microangiopathic disease. There is no hemorr juliocesar or midline shift. No enhancing mass lesion is identified on the postcontrast images. A small chr onic infarct is seen in the left cerebellar hemisphere. No extra-axial fluid collection is seen. The cerebellar tonsils are normal in configuration. Ventricles, sulci, and cisterns: Prominent secondary to involutional change. Pituitary and sella: Unremarkable. Intracranial vasculature: Normal flow voids are maintained at the skull base. Orbits: The bony orbits are grossly intact. Orbital contents are normal in appearance noting bilater al ocular lens implants. Sinuses and mastoids: There is delayed opacification of the right sphenoid sinus. Air-fluid levels ar e noted in the maxillary antra. Calvarium: Unremarkable. Cervical cord: Partially visualized cervical spinal cord is normal in morphology and signal intensity . IMPRESSION: 1. Large acute to subacute infarct involving the posterior right MCA territory as above. 2. There are additional punctate foci of acute to subacute ischemia within the right frontal lobe and right subinsular cortex. These findings suggests an embolic phenomenon. 3. There is no hemorrhage or midline shift. ACT 112: Negative or not required by law. Electronically signed by: Ambrose Beltre M.D. 11/20/2021 2:24 PM
[2021-11-20] MEDS ORDERED: GADOBUTROL 65ML VIAL IV ONE (14:29)
[2021-11-20] MEDS ORDERED: VANCOMYCIN HCL 1,250 MG in SODIUM CHLORIDE 0.9% 250 ML IV SCH (16:00)
--- NOTE | 2021-11-20 17:08 | Hospitalist Progress Note ---
Date of Service November 20, 2021 Assessment & Plan (1) CVA (cerebral vascular accident): Plan: Brain MRI: 1. Large acute to subacute infarct involving the posterior right MCA territory as above. 2. There are additional punctate foci of acute to subacute ischemia within the right frontal lobe and right subinsular cortex. These findings suggests an embolic phenomenon. 3. There is no hemorrhage or midline shift. Brain MRA tomorrow, echocardiogram Monitor on telemetry to rule out underlying A. fib Aspirin and Plavix contraindicated at this point due to possible GI bleed Neurology service consulted Stroke protocol ordered (2) Acute GI bleeding: Plan: Acute blood loss anemia Possible UGI bleed Hemoglobin decreased from 13-10 Repeat hemoglobin at 5 PM pending Protonix IV GI consulted, no plans for EGD at this point (3) Fever: Plan: Was hypothermic initially, TSH normal Improved with bear hugger Now temperature is elevated at 38.0 Likely secondary to underlying infection and stroke Management of infection, bacteremia per below (4) Bacteremia: Plan: Blood culture: Gram-negative bacilli 1 out of 2 bottles Chest x-ray: Negative Urinalysis: Negative CT abdomen pelvis: No signs of acute process Lumbar puncture not recommended by neurology service Continue vancomycin and Zosyn Follow-up blood cultures (5) Seizure: Plan: EEG: Mildly diffusely abnormal EEG, consistent with a generalized nonfocal encephalopathy without associated potentially epileptogenic features Continue Keppra 500 mg every 12 hours (6) Rhabdomyolysis: Plan: Mild, CPK 863 Renal function stable Continue IV fluids Mild troponin elevation Stable at 0.1 EKG no signs of acute ischemia or infarct Echocardiogram no wall motion abnormalities Likely demand ischemia Hypertension. Holding her home medication of hydrochlorothiazide, propranolol, amlodipine, place on IV labetalol p.r.n. Hyperlipidemia. Holding statin for now. To restart when the patient is able to. Panic disorder, on Ativan p.r.n. The patient will be on IV Ativan p.r.n. Left Humerus fracture. Sling ordered by ER. Ordered ct left shoulder. Consulted ortho. Hx of DVT Couple of years ago as per son. On Coumadin. INR only 1.1. Holding Coumadin for bleeding. DVT prophylaxis.Sequential compression devices for now. DISPOSITION: Closely monitor in the tele floor. To be determined. CODE STATUS: DNR/DNI as per discussion with the son. Admission and Anticipated Discharge Date Admission Date: November 19, 2021 Subjective Follow-up for unresponsiveness, hypothermia, possible GI bleed, seizure episode, etc. Seen resting in bed, lethargic, does not follow verbal commands, withdraws to painful stimuli No active bleeding per RN-no melena/hematochezia, epistaxis No recurrence of seizures Full ROS difficult to obtain due to patient's cognitive status Review of Systems Review of Systems: Unobtainable due to cognitive status Physical Exam Physical Exam: General-lethargic, breathing with no effort or accessory muscle use Head-no signs of hematoma or lacerations Eyes- PERRL, EOMI, anicteric ENT-dried blood in the nostrils, oropharynx clear Neck- supple, no JVD, no adenopathy, no thyromegaly; carotids +2/2, no bruits appreciated Lungs- clear to auscultation bilaterally, no rales/wheezes Heart- normal rate, regular rhythm; no murmur, no gallop, no rub appreciated Abdomen- normal bowel sounds, nondistended, soft, nontender, no masses or hepatosplenomegaly Extremities- no pretibial edema, no calf tenderness; peripheral pulses intact Neuro-lethargic but moves extremities equally occasionally Skin- warm & dry Results & Data Results & Data ([facility]) Vital Signs (Past 12 Hours) Vital Signs Temp Pulse Pulse Resp BP Pulse Ox 11/20/21 16:06 98 H 11/20/21 16:03 36.8 C 87 18 132/84 92 11/20/21 11:52 37.0 C 100 H 18 130/68 100 11/20/21 07:38 93 H 11/20/21 06:25 37.5 C 104 H 18 118/63 100 11/20/21 06:00 38.0 C H 89 16 116/76 100 all noted and reviewed including below (1) Rhabdomyolysis Encounter type: initial encounter Rhabdomyolysis type: traumatic Qualified Code(s): T79.6XXA - Traumatic ischemia of muscle, initial encounter
[2021-11-20 17:11] LABS: Hematocrit (blood only) 27.4 % (37-47); Hemoglobin 9.2 g/dL (12.0-16.0)
[2021-11-20] MEDS ORDERED: PHARMACIST DISCHARGE MED REC CONSULT PRN (21:39)
[2021-11-21] MEDS: PIPERACILLIN/TAZOBACTAM 3.375 GM in DEXTROSE 5% 100 ML IV SCH ×3 (00:53→16:12)
[2021-11-21] MEDS: PANTOprazole 40 MG in DEXTROSE 5% 100 ML IV SCH ×2 (04:19→08:43)
[2021-11-21 06:56] LABS: Basophils # (auto) 0.04 K/uL (0-0.2); Basophils % (auto) 0.6 %; Eosinophils # (auto) 0.12 K/uL (0-0.5); Eosinophils % (auto) 1.9 %; Hemoglobin 8.4 g/dL (12.0-16.0); Immature Granulocytes # (auto) 0.02 K/uL (0.00-0.02); Immature Granulocytes % (auto) 0.3 %; Lymphocytes # (auto) 1.73 K/uL (1.2-3.4); Lymphocytes % (auto) 26.8 %; Mean Corpuscular Hemoglobin 32.4 pg (25-34); Mean Corpuscular Hgb Conc 33.6 g/dL (32-36); Mean Corpuscular Volume 96.5 fL (80-100); Mean Platelet Volume 8.8 fL (7.4-10.4); Monocytes # (auto) 0.74 K/uL (0.11-0.59); Monocytes % (auto) 11.5 %; Neutrophils % (auto) 58.9 %; Platelet Count 153 K/uL (130-400); RDW Coefficient of Variation 13.4 % (11.5-14.5); RDW Standard Deviation 46.6 fL (36.4-46.3); Red Blood Count 2.59 M/uL (4.2-5.4); White Blood Count 6.45 K/uL (4.8-10.8)
[2021-11-21 07:15] LABS: BUN Creatinine Ratio 27.9 (10-20); Calcium 7.4 mg/dl (8.5-10.1); Chol HDL Ratio 2.9 (0-5); Creatinine Clr Calc Pharmacy 103.8 ml/min; Est GFR (Non-African American) 91.5 ml/min; Magnesium 1.9 mg/dl (1.7-2.4); Potassium 3.4 mmol/L (3.5-5.1)
[2021-11-21 08:14] LABS: Estimated Average Glucose 123 mg/dl; Hemoglobin A1C 5.9 % (4.5-5.6)
[2021-11-21] MEDS: levETIRAcetam 500 MG in 0.9 % SODIUM CHLORIDE 100 ML IV SCH ×2 (08:43→20:55)
[2021-11-21] MEDS: SODIUM CHLORIDE 0.9% 1000ML 1,000 ML IV SCH ×2 (08:50→20:55)
--- NOTE | 2021-11-21 09:25 | Gastroenterology Progress Note ---
Date of Service November 21, 2021 Assessment & Plan (1) Acute GI bleeding: Plan: Pt is a 86 yo female found unresponsive by son at home, with a pool of blood which he suspected she had vomited. New onset of seizures when she underwent CT scan studies. 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 She is alert, oriented x 3 now, w L hemipharesis, R facial droop. She is not having hematemesis, BRBPR, or melena. I spoke w son who noted that after speaking with other family members, pt had complained of epistaxis few days ago. I confirmed this w pt. She denies hx of GI bleeding. - Continue to defer endoscopic eval at this time given no clear s/s of GI bleeding and new CVA - Will dc PPI gtt, change to IV BID dosing - Monitor blood ct and transfuse prn - CVA management per Neurology, no contraindication for anticoag/antiplatelet uses from GI standpoint given no venecia s/s of GI bleeding - GI to sign off; pls recall prn Admission and Anticipated Discharge Date Admission Date: November 19, 2021 Supervising Physician Co-Signing Physician Notes I have seen and examined the patient and discussed the management with ZACARIAS Ely. Patient is more alert this am- oriented to person/place/time. No over GI bleeding noted. Slight downtrend in hgb, normal bun. She denies any prior history of hematemesis/hematochezia that she recalls prior to her admission. PE - well nourished fm in nad, right sided facial droop, left hemiparesis, abd soft nt nd Hgb reviewed, bun reviewed No plans for scopes given no overt signs of bleeding and also now signs of right sided embolic cva in the right MCA territory. Agree with further plan of care as below. Subjective Pt is responsive now, awake, alert, orientedx 3. Does have L hemipharesis and R facial droop. She denies abd pain, n/v. Review of Systems Review of Systems: All systems reviewed & are unremarkable except as noted in HPI & below Physical Exam Constitutional: WD/WN, vitals as above cooperative and comfortable Eyes: PERRL, conjunctivae normal, anicteric sclerae ENMT: external ear and nose normal, oropharynx normal Respiratory: normal respiratory effort, lungs clear to auscultation Cardiovascular: RRR, no murmur, no edema Gastrointestinal (Abdomen): normal bowel sounds, soft, nontender, no hepatosplenomegaly Skin: no rashes, warm and dry no jaundice Neurologic: L hemipharesis, R facial droop Psychiatric: A+Ox3, euthymic affect Lymphatic: no lymphedema Results & Data ([facility]) Vital Signs (Past 12 Hours) Vital Signs Temp Pulse Pulse Resp BP BP Pulse Ox 11/21/21 08:16 36.5 C 90 18 134/74 95 11/21/21 03:02 37.1 C 91 H 20 138/66 96 11/21/21 00:13 101 H 11/20/21 23:07 36.8 C 97 H 18 144/78 H 97
[2021-11-21] MEDS: POTASSIUM CHLORIDE / WTR 10 MEQ/100 ML PLCT IV SCH ×4 (09:56→13:59)
--- NOTE | 2021-11-21 11:26 | Communication Note ---
Date of Service: November 21, [address] Brock last night. Await final dictation. Question of fracture of Left proximal humerus. Follow up CT showing likely older impacted fracture of humeral head. Sling to LUE when sitting up or OOB for comfort. Nonsurgical in nature. Await Dr. Brock's input.
--- NOTE | 2021-11-21 13:47 | Hospitalist Progress Note ---
Date of Service November 21, 2021 Assessment & Plan (1) CVA (cerebral vascular accident): Plan: Left Hemiplegia Brain MRI: 1. Large acute to subacute infarct involving the posterior right MCA territory as above. 2. There are additional punctate foci of acute to subacute ischemia within the right frontal lobe and right subinsular cortex. These findings suggests an embolic phenomenon. 3. There is no hemorrhage or midline shift. MRA head and neck: pending echocardiogram: EF 60-65%, Gr 1 diastolic dysfunction, LV wall motion is normal no arrhythmias per Telemetry at this time Awake, alert, oriented x3, conversant today Positive left hemiplegia Aspirin and Plavix started today GI bleed unlikely per GI, no signs of active bleeding Patient's usual Coumadin, which she takes for DVT, currently on hold in light of extensive acute CVA INR 1.[address] head without contrast tomorrow to follow-up for possible cerebral edema CT angiogram of the head on November 23, 2021 (delayed as patient already received CT IV contrast November 20, 2021) Neurology service consulted, discussed with Dr. Jaffe Stroke protocol ordered PT and OT evaluation (2) Acute GI bleeding: Plan: Acute blood loss anemia likely from epistaxis (per son, patient had epistaxis Saturday at home) Hemoglobin decreased from 13 --> 8.4- stable no active bleeding noted GI bleed unlikely per GI continue Protonix IV no plans for EGD at this point (3) Fever: Plan: Was hypothermic initially, TSH normal Improved with licha hugger afebrile since last night Likely secondary to underlying infection and stroke Management of infection, bacteremia per below (4) Bacteremia: Plan: Blood culture: Gram-negative bacilli 1 out of 2 bottles Chest x-ray: Negative Urinalysis: Negative CT abdomen pelvis: No signs of acute process Lumbar puncture not recommended by neurology service MRSA swab: negative Continue Zosyn IV day 2 Follow-up blood cultures (5) Seizure: Plan: EEG: Mildly diffusely abnormal EEG, consistent with a generalized nonfocal encephalopathy without associated potentially epileptogenic features Continue Keppra 500 mg every 12 hours (6) Rhabdomyolysis: Plan: Mild, CPK 863 --> 375 Renal function stable Continue IV fluids Mild troponin elevation Stable at 0.1 EKG no signs of acute ischemia or infarct Echocardiogram no wall motion abnormalities Likely demand ischemia Hypertension. Holding her home medication of hydrochlorothiazide, propranolol, amlodipine, place on IV labetalol p.r.n. Hyperlipidemia. resume usual Atorvastatin 20mg Panic disorder, on Ativan p.r.n. The patient will be on IV Ativan p.r.n. Left Humerus fracture. Sling ordered by ER. - chronic as per Ortho Hx of DVT - INR 1.1 - resume coumadin if OK with Neuro DVT prophylaxis.Sequential compression devices for now. Holding heparin in light of extensive CVA DISPOSITION: Closely monitor in the tele floor. To be determined. CODE STATUS: DNR/DNI as per discussion with the son. plan of care discussed with patient and his sone over the phone in detail and at length all questions answered they are understanding, agreeable, comfortable with the plan of care Admission and Anticipated Discharge Date Admission Date: November 19, 2021 Subjective ff up for acute CVA, seizure episode, encephalopathy, gram negative bacilli bacteremia, anemia from epistaxis vs. GI bleed, etc seen resting in bed, comfortable awake, alert, oriented x 3 answers all questions appropriately states she feels ok overall denies headache, dizziness, nausea/vomiting no chest pain, dyspnea, palpitations, dizziness has left sided weakness no abdominal pain no chills no note of melena/hematochezia no other symptoms Review of Systems Review of Systems: all noted and negative except for above Physical Exam Physical Exam: General- oriented x 3, not in distress, speaks in sentences with no effort or accessory muscle use Eyes- anicteric Neck- no JVD Lungs- clear breath sounds bilaterally, no rales/wheezes Heart- normal rate, regular rhythm; no murmurs Abdomen- normal bowel sounds, nondistended, soft, nontender Extremities- no pretibial edema, no calf tenderness Neuro- alert, oriented x 3; (+) mild left facial droop, (+) left hemiplegia- motor strength 1/5, no gross focal neurologic deficits Skin- warm & dry Results & Data Results & Data ([facility]) Vital Signs (Past 12 Hours) Vital Signs Temp Pulse Pulse Resp BP BP Pulse Ox 11/21/21 09:00 69 11/21/21 08:16 36.5 C 90 18 134/74 95 11/21/21 03:02 37.1 C 91 H 20 138/66 96 all noted and reviewed including below (1) Rhabdomyolysis Encounter type: initial encounter Rhabdomyolysis type: traumatic Qualified Code(s): T79.6XXA - Traumatic ischemia of muscle, initial encounter
[2021-11-21 15:34] LABS: Hematocrit (blood only) 25.4 % (37-47); Hemoglobin 8.5 g/dL (12.0-16.0)
--- NOTE | 2021-11-21 15:51 | Communication Note ---
Date of Service: November 21, 2021 Josefina is doing remarkably well today she is awake alert oriented can tell me her history describes having a sudden onset of left-sided weakness well on the toilet Saturday evening and crawling slowly across the floor to the telephone in an attempt to call family members. At that point she apparently lost consciousness may well of had a seizure and was found approximately 15 hours later by her son. She was hypothermic stuporous had a seizure was treated appropriately with benzodiazepines and Keppra but is now quite awake alert and cognizant. She has a large right hemispheric infarction in his posterior portions but despite this localization has very little or no neglect can tell me which fingers of her left hand I am touching but has a pretty dense paresis and does not have an obvious field cut Echocardiographic studies have shown no source of clot Imaging of her vasculature still pending with MRA or possibly CTA depending on renal function She still has a significant anemia. Is not changed appreciably over the past 24 hours but there was a marked drop from 13-8.4 is not clear why this occurred or whether some of this may have been due to a laboratory error on the initial hemoglobin determination She has been on Coumadin apparently is felt to need this for the foreseeable future by her teacher of the sight impaired Dr. Mary but this has been held until we establish whether or not she is having an active GI bleed This point neurology is going to continue to follow she is going to need some rehabilitation, physical therapy occupational therapy probably a shelter facility for a bit of time versus a rehabilitation unit and I believe she needs to be on some antiplatelet therapy at a minimum possibly combination of antiplatelet therapy and Coumadin depending on what we find on other cardiac monitoring and vascular imaging of the cervical and intracranial vessels We will return tomorrow for reevaluation will be reviewing her chart from our office by computer Juan Jaffe MD The above note was iterated utilizing voice recognition technology and may have spelling errors punctuation errors pronoun usage errors and syntax errors
[2021-11-21] MEDS: CLOPIDOGREL BISULFATE 75 MG TAB PO SCH (16:03)
[2021-11-21] MEDS: ASPIRIN 81 MG ECTAB PO SCH (16:03)
[2021-11-21] MEDS: PANTOprazole 40 MG in SYRINGE 0 ML IV SCH (20:55)
[2021-11-22] MEDS: PIPERACILLIN/TAZOBACTAM 3.375 GM in DEXTROSE 5% 100 ML IV SCH ×2 (00:02→08:14)
[2021-11-22 07:18] LABS: Basophils # (auto) 0.03 K/uL (0-0.2); Basophils % (auto) 0.6 %; Eosinophils # (auto) 0.16 K/uL (0-0.5); Eosinophils % (auto) 3.1 %; Hematocrit (blood only) 26.1 % (37-47); Hemoglobin 8.6 g/dL (12.0-16.0); Immature Granulocytes # (auto) 0.02 K/uL (0.00-0.02); Immature Granulocytes % (auto) 0.4 %; Lymphocytes # (auto) 1.54 K/uL (1.2-3.4); Lymphocytes % (auto) 30.1 %; Mean Corpuscular Hemoglobin 32.1 pg (25-34); Mean Corpuscular Volume 97.4 fL (80-100); Mean Platelet Volume 8.6 fL (7.4-10.4); Monocytes # (auto) 0.57 K/uL (0.11-0.59); Monocytes % (auto) 11.1 %; Neutrophils % (auto) 54.7 %; Platelet Count 166 K/uL (130-400); RDW Coefficient of Variation 13.4 % (11.5-14.5); RDW Standard Deviation 46.3 fL (36.4-46.3); Red Blood Count 2.68 M/uL (4.2-5.4); White Blood Count 5.12 K/uL (4.8-10.8)
[2021-11-22 07:49] LABS: BUN Creatinine Ratio 8.5 (10-20); Calcium 7.7 mg/dl (8.5-10.1); Creatinine Clr Calc Pharmacy 89.6 ml/min; Est GFR (African American) 102.9 ml/min; Est GFR (Non-African American) 88.8 ml/min; Magnesium 1.9 mg/dl (1.7-2.4); Potassium 3.3 mmol/L (3.5-5.1)
[2021-11-22] MEDS: PANTOprazole 40 MG in SYRINGE 0 ML IV SCH ×2 (08:14→21:22)
[2021-11-22] MEDS: levETIRAcetam 500 MG in 0.9 % SODIUM CHLORIDE 100 ML IV SCH ×2 (08:14→21:21)
[2021-11-22] MEDS: ASPIRIN 81 MG ECTAB PO SCH (08:15)
[2021-11-22] MEDS: CLOPIDOGREL BISULFATE 75 MG TAB PO SCH (08:15)
[2021-11-22] MEDS ORDERED: POTASSIUM CHLORIDE 10 MEQ TABCR PO STA (09:20)
[2021-11-22] MEDS: SODIUM CHLORIDE 0.9% 1000ML 1,000 ML IV SCH ×3 (09:47→23:33)
--- NOTE | 2021-11-22 10:15 | CT Scan Report ---
CT head/brain wo con CLINICAL HISTORY: Nosebleed, weakness Technique: Contiguous axial CT images of the head were acquired from the base of the skull to the charly arcadio without intravenous contrast administration. Images were viewed in brain, subdural and bone [facility]. Automated dose lowering techniques and/or adjustment according to patient size were utilized for this exam. Comparison: Comparison is made to CT head 11/19/2021 Findings: Areas of decreased attenuation are present in the periventricular and subcortical white matter bilate rally consistent with small vessel ischemic disease. Generalized cerebral atrophy with commensurate e nlargement of the ventricles, sulci, and cisterns is also present. There is no acute intracranial hem orrhage or evidence of acute territorial infarction. No shift of the midline structures, mass effect, or extra-axial abnormalities are shown. Atherosclerotic calcifications are present in the intracran ial segments of the internal carotid arteries. Focal hypodensity in the right centrum semiovale Right sphenoid sinus opacification is seen. The orbits appear normal. There are no acute fractures o f the calvaria or scalp swelling. Impression: No evidence of acute intracranial abnormality. Right sphenoid sinus opacification is unchanged. ACT 112: Negative or not required by law. Electronically signed by: Addy Lawton M.D. 11/22/2021 10:14 AM
--- NOTE | 2021-11-22 12:20 | Neurology Progress Note ---
Date of Service November 22, 2021 Assessment & Plan (1) CVA (cerebral vascular accident): Plan: 1. plavix 75 mg and aspirin 81 mg daily x 21 days then plavix alone- ?? may be restart coumadin and add aspirin 81 mg and let PCP decide if possible factor disorder ?? would doppler LE for DVT 2. liberalize blood pressure 3. then optimize HTN, HLD, LDL <70 consider patients age 4. PT/OT for discharge needs 5. GI consulted for possible GI bleed work up 6. needs CTA head and neck or MRA head neck for vascular evaluation 7. TTE - no ASD follow up with neurology in 4-6 weeks Karen Robertson [facility] schedule (2) Seizure: Plan: 1. EEG- with no seizure focus 2. continue Keppra 500 mg q 12 hours 3. no driving for 6 months from last seizure date, no heights, no bathing or swimming alone 4. avoid ativan for seizure activity, load phenytoin if needed. Admission and Anticipated Discharge Date Admission Date: November 19, 2021 Supervising Physician Co-Signing Physician Notes I have seen and discussed above patient with Dr Juan Jaffe, neurology Josefina continues to be remarkably better each day with now an improvement in her motor paresis and still without any significant neglect of bilateral presenting stimuli or denial of any of her deficits despite the nondominant parietal localization of her infarction That issue is where to go with anticoagulation here and this is can be dependent to some degree on results of the ultrasound of her legs and the CT angiographic studies but I am leaning towards the simple solution of placing her back on Coumadin which she has been on for over 10 years and adding a single baby aspirin per day which is what she has been doing but she presented with a subtherapeutic INR on the day of admission and I suspect she has been chronically under anticoagulated So far we have not documented any atrial fibrillation but she is at risk for this arrhythmia If she goes back on Coumadin and aspirin however doing a Zio patch in my opinion would be very academic as it would not change what we do therapeutically long- term We will follow up tomorrow after we hopefully have the opportunity to review the CT angiographic studies and another CT scan to be sure there is not hemorrhagic transformation of the current infarction which is somewhat generous in size Juan Jaffe MD Subjective Josefina is an 86 year old female with PMH- HTN, 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 was found unresponsive at home by her son. She takes care of herself, and she has no other complaints. Her son was with his mother from 6 to 9 p.m the day prior. and she was doing fine and today around 6:30pm when he went to visit her, he found her in the bedroom unresponsive in a pool of blood. He had thought that the patient might have vomited blood because he witnessed similar episode with his father in the past. Her son called EMS and was brought to [facility] ED 11/19/2021. She has blood all over the face and the extremities. Her temperature was 34 she was giiven warm fluids and placed on bear hugger, and temperature is improving .She is on Coumadin for DVT as per the son but her INR only 1.1. She had an episode of seizure less than 1 minute. She was loaded with Keppra and given IV Ativan. Today she is awake and alert. Son is in the room and questioning the addition of coumadin for DVT that occurred 15 years ago. denies CP, SOB, abdominal pain, N, V. vision changes Review of Systems Review of Systems: All systems reviewed & are unremarkable except as noted in HPI & below Physical Exam Physical Exam: Physical Exam: Constitutional:appearance over nourished, healthy Ears, Nose, Mouth and Throat: mouth dry , tongue left sided laceration Cardiovascular: normal S-1 and S-2 and regular rate and rhythm Respiratory: course breath sounds Musculoskeletal: peripheral edema bilateral LE Skin: no stigmata of neurocutaneous disease noted and normal and intact Eyes: extraocular muscles intact (EOMI) and pupils equal, round and reactive to light (PERRL), no gross visual field deficit NEUROLOGIC EXAMINATION: Mental status: Alert and interactive Oriented to person Speech clear with no aphasia Cranial Nerves left nasolabial fold flattened Sensory: intact to light cool touch, GT proprioception intact Coordination: finger to nose right intact Gait/Stance: Posture lying in bed strength: hand recycling 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 right 5/5 left 3/5, biceps triceps right 5/5 left 1/5, hip flex right 4+/5, left 4+/5 Results & Data ([facility]) Vital Signs (Past 12 Hours) Vital Signs Temp Pulse Resp BP BP Pulse Ox 11/22/21 11:18 36.6 C 93 H 18 134/67 97 11/22/21 07:50 36.7 C 96 H 18 149/68 H 95 11/22/21 04:14 37.3 C 93 H 18 154/74 H 94 Laboratory Results Abnormal lab results 11/21/21 11/22/21 11/22/21 Range/Units 15:19 06:56 06:56 RBC 2.68 L (4.2-5.4) M/uL Hgb 8.5 L 8.6 L (12.0-16.0) g/dL Hct 25.4 L 26.1 L (37-47) % Potassium 3.3 L (3.5-5.1) mmol/L BUN 4 L (6-23) mg/dl Creatinine 0.47 L (0.6-1.2) mg/dl BUN/Creatinine Ratio 8.5 L (10-20) Glucose 114 H (70-99(Fasting)) mg/dl Calcium 7.7 L (8.5-10.1) mg/dl Total Creatine Kinase 522 H (26-192) U/L Diagnostic Findings CT head-No evidence of acute intracranial abnormality. Right sphenoid sinus opacification is unchanged.
[2021-11-22] MEDS: cefTRIAXone SODIUM 2,000 MG in DEXTROSE 5% 50 ML IV SCH (16:26)
[2021-11-22] MEDS ORDERED: WARFARIN SOD 5 MG TAB PO ONE (17:10)
--- NOTE | 2021-11-22 19:34 | Hospitalist Progress Note ---
Date of Service November 22, 2021 Assessment & Plan (1) CVA (cerebral vascular accident): Plan: Left Hemiplegia Brain MRI: 1. Large acute to subacute infarct involving the posterior right MCA territory as above. 2. There are additional punctate foci of acute to subacute ischemia within the right frontal lobe and right subinsular cortex. These findings suggests an embolic phenomenon. 3. There is no hemorrhage or midline shift. Echocardiogram: EF 60-65%, Gr 1 diastolic dysfunction, LV wall motion is normal media monitor showed no arrhythmias Neurology on board recommend to restart Coumadin with aspirin Will discontinue Plavix Repeat CT head showed no acute intracranial abnormality will get a CTA of the head and neck CT angiogram of the head on November 23, 2021 (delayed as patient already received CT IV contrast November 20, 2021) PT and OT evaluation Follow-up with neurology in 4 to 6 weeks (2) Acute GI bleeding: Plan: Acute blood loss anemia likely from epistaxis (per son, patient had epistaxis Saturday at home) Hemoglobin decreased from 13 --> 8.4-->8.6 stable no active bleeding noted GI bleed unlikely per GI continue Protonix IV no plans for EGD at this point (3) Fever: Plan: Was hypothermic initially, TSH normal Improved with licha hugger Patient has been afebrile for about 48 hours Likely secondary to underlying infection and stroke Management of infection, bacteremia per below (4) Bacteremia: Plan: Blood culture: Gram-negative bacilli -E. coli CT abdomen pelvis: No signs of acute process Lumbar puncture not recommended by neurology service MRSA swab: negative Currently on IV Zosyn will transition to Rocephin IV Clinically improved (5) Seizure: Plan: EEG: Mildly diffusely abnormal EEG, consistent with a generalized nonfocal encephalopathy without associated potentially epileptogenic features Continue Keppra 500 mg every 12 hours no driving for 6 months from last seizure date, no heights, no bathing or swimming alone avoid ativan for seizure activity, load phenytoin if needed as per neuro (6) Rhabdomyolysis: Plan: Mild, CPK 863 --> 375 Renal function stable Continue IV fluids Mild troponin elevation Stable at 0.1 EKG no signs of acute ischemia or infarct Echocardiogram no wall motion abnormalities Likely demand ischemia Hypertension. BP meds on hold to allow permissive hypertension We will resume propranolol in a.m. Hyperlipidemia. resume usual Atorvastatin 20mg Panic disorder, on Ativan p.r.n. The patient will be on IV Ativan p.r.n. Left Humerus fracture. Sling ordered by ER. - chronic as per Ortho Hx of DVT Patient has been on Coumadin for the last 10 to 15 years, but INR on admission subtherapeutic Will resume Coumadin as per neuro Will get a Doppler of lower extremity DVT prophylaxis.Sequential compression devices for now. Holding heparin in light of extensive CVA DISPOSITION: Closely monitor in the tele floor. To be determined. CODE STATUS: DNR/DNI as per discussion with the son. Admission and Anticipated Discharge Date Admission Date: November 19, 2021 Subjective Patient was seen and examined for follow-up of acute CVA, seizure episode, encephalopathy, gram negative bacilli bacteremia, anemia from epistaxis vs. GI bleed. Lying in bed with no acute distress eating all Patient said that she is feeling much better. Denies any chest pain, palpitation, dizziness, shortness of breath. Review of Systems Review of Systems: All systems reviewed & are unremarkable except as noted in Subjective Physical Exam Physical Exam: General- oriented x 3, not in distress, speaks in sentences with no effort or accessory muscle use Eyes- anicteric Neck- no JVD Lungs- clear breath sounds bilaterally, no rales/wheezes Heart- normal rate, regular rhythm; no murmurs Abdomen- normal bowel sounds, nondistended, soft, nontender Extremities- no pretibial edema, no calf tenderness Neuro- alert, oriented x 3; (+) mild left facial droop, (+) left hemiplegia- motor strength 1/5, no gross focal neurologic deficits Skin- warm & dry Results & Data Results & Data ([facility]) Vital Signs (Past 12 Hours) Vital Signs Temp Pulse Resp BP Pulse Ox 11/22/21 19:11 36.9 C 95 H 18 148/67 H 97 11/22/21 16:50 36.8 C 88 18 124/69 98 11/22/21 11:18 36.6 C 93 H 18 134/67 97 11/22/21 07:50 36.7 C 96 H 18 149/68 H 95 (1) Rhabdomyolysis Encounter type: initial encounter Rhabdomyolysis type: traumatic Qualified Code(s): T79.6XXA - Traumatic ischemia of muscle, initial encounter
[2021-11-22] MEDS: MELATONIN 3 MG TAB PO PRN (22:15)
--- NOTE | 2021-11-23 03:44 | Consultation Report ---
DATE OF CONSULTATION: 11/20/2021. HISTORY OF PRESENT ILLNESS: The patient was seen and examined at the request of Dr. Casillas on 10/29 regarding a left proximal humerus fracture. The patient is an 86-year-old female with a compl icated medical history, was found unresponsive at home by her son. The patient is generally active. However, she was found unresponsive in a pool of blood. The patient was then transported to [facility] via EMS and she was seen and evaluated. She was noted to be hypothermic and gi little warm fluids, placed in a Aminata Hugger. She was drowsy, noted to move her extremities. She was mo ving more on the right side than the left. She had a head CT scan, CT of the face, cervical spine, a bdomen and pelvis; chest x-ray, shoulder x-ray and pelvic x-ray. Shoulder x-ray noted minimally disp laced impacted fracture of the greater tuberosity of the humerus. During the workup, she was noted t o have a cerebrovascular accident and she was admitted to the hospitalist service. Orthopedics was c onsulted. 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 PAST SURGICAL HISTORY: Breast biopsy, laser of secondary cataract, cataract surgery bilateral and to hai hysterectomy. ALLERGIES: METRONIDAZOLE. MEDICATIONS: Please note the list included in the medical record. SOCIAL HISTORY: She is . She lives alone. Former smoker. Alcohol daily. No drug use. PHYSICAL EXAMINATION: This is an essentially obtunded an 86-year-old female lying supine in the hosp ital room bed. Some response to stimulus in conversation with inconsistent head nodding. Eyes close d. The patient would not open eyes during the examination or discussion. Focused examination of the left upper extremity demonstrates, skin warm, dry and intact. Cap refill less than 2 seconds. Radi al pulse 2/4. Passive range of motion of the left shoulder and upper extremity benign without any wi ncing or guarding. No specific response to palpatory exam around the proximal humerus or shoulder gi rdle. No substantial bruising noted. Radiographs and CT scan reviewed demonstrating an impacted fracture of the superolateral greater tube rosity of the humerus. Osteoarthritic changes noted with sclerosis and some loss of joint space. IMPRESSION: Left impacted superolateral greater tuberosity fracture of the humeral head, indetermina te age. Multiple medical comorbidities with current diagnosis favoring cerebrovascular accident. RECOMMENDATION: Nonoperative management. Supportive care. Ice to the site if the swelling persists. Not necessary to use a sling at this time unless patient complaints would dictate otherwise. The p atient may follow up as an outpatient if necessary. Thank you for the opportunity to consult in care of this patient. Job ID: [id number]
[2021-11-23 07:50] LABS: Basophils # (auto) 0.03 K/uL (0-0.2); Basophils % (auto) 0.6 %; Eosinophils # (auto) 0.22 K/uL (0-0.5); Eosinophils % (auto) 4.4 %; Hematocrit (blood only) 27.4 % (37-47); Immature Granulocytes # (auto) 0.05 K/uL (0.00-0.02); Lymphocytes # (auto) 1.59 K/uL (1.2-3.4); Lymphocytes % (auto) 31.8 %; Mean Corpuscular Hemoglobin 32.1 pg (25-34); Mean Corpuscular Hgb Conc 32.8 g/dL (32-36); Mean Corpuscular Volume 97.9 fL (80-100); Mean Platelet Volume 8.9 fL (7.4-10.4); Monocytes # (auto) 0.49 K/uL (0.11-0.59); Monocytes % (auto) 9.8 %; Neutrophils # (auto) 2.62 K/uL (1.4-6.5); Neutrophils % (auto) 52.4 %; Platelet Count 205 K/uL (130-400); RDW Coefficient of Variation 13.4 % (11.5-14.5); RDW Standard Deviation 46.7 fL (36.4-46.3)
[2021-11-23 08:17] LABS: BUN Creatinine Ratio 11.6 (10-20); Calcium 8.2 mg/dl (8.5-10.1); Creatinine Clr Calc Pharmacy 95.1 ml/min; Est GFR (Non-African American) 91.5 ml/min; Magnesium 1.8 mg/dl (1.7-2.4); Potassium 3.2 mmol/L (3.5-5.1)
[2021-11-23] MEDS ORDERED: OPTIRAY 320 125ml IV ONE (08:57)
--- NOTE | 2021-11-23 09:12 | Ultrasound Report ---
US venous doppler LE BI CLINICAL HISTORY: r/o dvt COMPARISON: None available at the time of this dictation. TECHNIQUE: Bilateral lower extremity real-time compression venous ultrasound with Color Doppler imagi ng. Utilizing real-time ultrasonic imaging multiple real time high-resolution ultrasonic images with comp ression and noncompression maneuvers of the deep venous system in addition to color doppler imaging w ere performed from the common femoral vein through the proximal calf veins. FINDINGS: No deep venous thrombus is seen on the right. In the left popliteal vein there is the appearance of a nonocclusive thrombus. Impression: Nonocclusive thrombus in the left popliteal vein. No deep venous thrombus on the right. ACT 112: Negative or not required by law. Electronically signed by: Addy Lawton M.D. 11/23/2021 9:10 AM
[2021-11-23] MEDS ORDERED: POTASSIUM CHLORIDE CRTAB 20 MEQ TABCR PO STA (09:15)
--- NOTE | 2021-11-23 10:03 | CT Scan Report ---
CT ANGIOGRAPHY OF THE NECK WITH CONTRAST CLINICAL HISTORY: Large acute to subacute infarct. COMPARISON STUDY: CT of the cervical spine November 19, 2021. Technique: CT angiography of the carotid and vertebral arteries was obtained using Optiray and 3D rec onstruction on an independent workstation. NASCET criteria was utilized. Automated exposure control was utilized for the study. A dose lowering technique was utilized adhering to the principles of ALA RA. Findings: Mild atherosclerotic plaque of the aortic arch is noted. Visualized portions of the lung ap ices are unremarkable. No cervical lymphadenopathy is present. There is no cervical spine fracture. M ultilevel degenerative disc disease is most obvious at C5-C6 and C6-C7. The bilateral common carotid, cervical internal carotid and vertebral arteries are patent. There is mild atherosclerotic plaque wi thin the vessels of the neck. There is no dissection. No intraluminal thrombus is identified. CTA of the head will be reported separately. IMPRESSION: No stenosis or dissection within the bilateral common carotid, cervical internal carotid or vertebral arteries. Mild atherosclerotic plaque. ACT 112: Negative or not required by law. Electronically signed by: Bob Sanchez M.D. 11/23/2021 10:01 AM
[2021-11-23] MEDS: ASPIRIN 81 MG ECTAB PO SCH (10:15)
[2021-11-23] MEDS: CLOPIDOGREL BISULFATE 75 MG TAB PO SCH (10:15)
[2021-11-23] MEDS: levETIRAcetam 500 MG in 0.9 % SODIUM CHLORIDE 100 ML IV SCH ×2 (10:15→20:26)
[2021-11-23] MEDS: PANTOprazole 40 MG in SYRINGE 0 ML IV SCH ×2 (10:17→20:26)
[2021-11-23] MEDS ORDERED: PROPRANOLOL HCL LA 80 MG CAPCR PO SCH (10:45)
--- NOTE | 2021-11-23 11:05 | CT Scan Report ---
CT angio head wo/w CLINICAL HISTORY: Large acute to subacute infarct TECHNIQUE: Contiguous axial CT images of the head were acquired from the base of the skull to the charly arcadio without intravenous contrast administration. CT angiography of the head was performed following intravenous administration of iodinated contrast. Coronal and sagittal MIPS were obtained from the ax ial data set and were submitted for review. Automated dose lowering techniques and/or adjustment acc ording to patient size were utilized for this examination. All measurements were calculated based on NASCET criteria. Comparison: Comparison is made to CT head 11/22/2021 FINDINGS: CT head: Hypodensity in the right posterior MCA territory is seen with minimal loss of braynt-white dif ferentiation at some regions. Opacification of the right sphenoid sinus is unchanged. CTA Head: The anterior and posterior cerebral circulations are patent. No hemodynamically significan t stenosis, aneurysm, dissection, or arteriovenous malformation is shown. Particular, the right MCA a ppears patent to the M3 segment without evidence of abrupt cut off. IMPRESSION: 1. Redemonstration of hypodensity in the right posterior MCA territory with focal losses of bryant-whi te differentiation, compatible with subacute infarct. 2. No occlusion, hemodynamically significant stenosis, aneurysm, dissection, or arteriovenous malfor mation in the major intracranial arteries. In particular, no abrupt cut off of the right MCA is noted . Assessment of stenosis of the internal carotid arteries is based on NASCET criteria. ACT 112: Negative or not required by law. Electronically signed by: Addy Lawton M.D. 11/23/2021 11:01 AM
--- NOTE | 2021-11-23 11:57 | Neurology Progress Note ---
Date of Service November 23, 2021 Assessment & Plan (1) CVA (cerebral vascular accident): Plan: 1. restarted coumadin and continue aspirin 81 mg 2. liberalize blood pressure 3. then optimize HTN, HLD, LDL <70 consider patients age 4. PT/OT for discharge needs 5. GI consulted for possible GI bleed work up - no source found 6. CTA head and neck for vascular evaluation- no acute findings. 7. TTE - no ASD 8. ZIO as oupatient will sign off for now call with questions concerns. follow up with neurology in 4-6 weeks Karen Robertson [facility] schedule (2) Seizure: Plan: 1. EEG- with no seizure focus 2. continue Keppra 500 mg q 12 hours 3. no driving for 6 months from last seizure date, no heights, no bathing or swimming alone 4. avoid ativan for seizure activity, load phenytoin if needed. 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 was found unresponsive at home by her son. She takes care of herself, and she has no other complaints. Her son was with his mother from 6 to 9 p.m the day prior. and she was doing fine and today around 6:30pm when he went to visit her, he found her in the bedroom unresponsive in a pool of blood. He had thought that the patient might have vomited blood because he witnessed similar episode with his father in the past. Her son called EMS and was brought to [facility] ED 11/19/2021. She has blood all over the face and the extremities. Her temperature was 34 she was giiven warm fluids and placed on bear hugger, and temperature is improving .She is on Coumadin for DVT as per the son but her INR only 1.1. She had an episode of seizure less than 1 minute. She was loaded with Keppra and given IV Ativan. Results & Data ([facility]) Vital Signs (Past 12 Hours) Vital Signs Temp Pulse Pulse Resp BP BP Pulse Ox 11/23/21 11:44 37.1 C 104 H 18 138/76 96 11/23/21 06:59 36.9 C 90 18 130/70 94 11/23/21 03:00 36.9 C 93 H 18 138/67 94 11/23/21 01:31 98 H 11/23/21 00:00 Pulse Ox 11/23/21 11:44 11/23/21 06:59 11/23/21 03:00 11/23/21 01:31 11/23/21 00:00 95 Laboratory Results Abnormal lab results 11/23/21 11/23/21 11/23/21 Range/Units 06:55 06:55 06:55 RBC 2.80 L (4.2-5.4) M/uL Hgb 9.0 L (12.0-16.0) g/dL Hct 27.4 L (37-47) % RDW Std Deviation 46.7 H (36.4-46.3) fL Immature Gran # (Auto) 0.05 H (0.00-0.02) K/uL Potassium 3.2 L (3.5-5.1) mmol/L BUN 5 L (6-23) mg/dl Creatinine 0.43 L (0.6-1.2) mg/dl Glucose 108 H (70-99(Fasting)) mg/dl Calcium 8.2 L (8.5-10.1) mg/dl Total Creatine Kinase 429 H (26-192) U/L Diagnostic Findings CTA head-Redemonstration of hypodensity in the right posterior MCA territory with focal losses of bryant-white differentiation, compatible with subacute infarct. No occlusion, hemodynamically significant stenosis, aneurysm, dissection, or arteriovenous malformation in the major intracranial arteries. In particular, no abrupt cut off of the right MCA is noted. CTA neck-No stenosis or dissection within the bilateral common carotid, cervical internal carotid or vertebral arteries. Mild atherosclerotic plaque. doppler LE-Nonocclusive thrombus in the left popliteal vein. No deep venous thrombus on the right.
[2021-11-23] MEDS: cefTRIAXone SODIUM 2,000 MG in DEXTROSE 5% 50 ML IV SCH (15:57)
--- NOTE | 2021-11-23 16:19 | Communication Note ---
Date of Service: November 23, 2021 Josefina continues to improve daily. She has much more movement in her left leg and a modest amount of improvement in the left arm still has no neglect and has minimal if any sensory symptoms and no visual field cut. Her CT angiography shows no evidence for a significant extracranial or intracranial source of emboli and the echo is relatively unremarkable but this would not exclude paroxysmal atrial fibrillation as a cause She does have some residual irregularities in her deep venous system of the left leg and was on Coumadin for years DVT prophylaxis When she presented the INR was subtherapeutic and she was still taking a baby aspirin I think the wisest thing to do here is to put her back on the Coumadin get her INR back into the therapeutic range, continue the aspirin, I have her set up for either an extended care facility with rehabilitation or rehabilitation facility and have her follow-up with her primary care physician. We can see her here in neurology in about a month. I think ordering a Zio patch in this setting is academic as she is going to be treated as if she was in atrial fibrillation with the Coumadin. Her local ca rdiologist Dr. Mary can make the ultimate decision about whether he thinks documenting atrial fibrillation in this setting is worthwhile Neurology is going to sign off at this point. I discussed her case with Dr. Cristina her attending physician Juan Jaffe MD The above note was generated utilizing voice recognition technology and may have spelling errors punctuation errors pronoun usage errors and syntax errors
[2021-11-23] MEDS ORDERED: WARFARIN SOD 5 MG TAB PO ONE (16:48)
--- NOTE | 2021-11-23 16:48 | Hospitalist Progress Note ---
Date of Service November 23, 2021 Assessment & Plan (1) CVA (cerebral vascular accident): Plan: Left Hemiplegia Brain MRI: 1. Large acute to subacute infarct involving the posterior right MCA territory as above. 2. There are additional punctate foci of acute to subacute ischemia within the right frontal lobe and right subinsular cortex. These findings suggests an embolic phenomenon. 3. There is no hemorrhage or midline shift. Echocardiogram: EF 60-65%, Gr 1 diastolic dysfunction, LV wall motion is normal noise tester showed no arrhythmias Neurology on board recommend to restart Coumadin with aspirin Plavix discontinued Repeat CT head showed no acute intracranial abnormality CTA head and neck showed Redemonstration of hypodensity in the right posterior MCA territory with focal losses of bryant-white differentiation, compatible with subacute infarct. 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 Mary can make the ultimate decision about the coumadin if there is any history of Afib Follow-up with neurology in 4 to 6 weeks (2) Acute GI bleeding: Plan: Acute blood loss anemia likely from epistaxis (per son, patient had epistaxis Saturday at home) Hemoglobin decreased from 13 --> 8.4-->8.6->9 stable no active bleeding noted GI bleed unlikely per GI continue Protonix IV no plans for EGD at this point (3) Fever: Plan: Was hypothermic initially, TSH normal Improved with licha hugger Patient has been afebrile for about 48 hours Likely secondary to underlying infection and stroke Management of infection, bacteremia per below (4) Bacteremia: Plan: Blood culture: Gram-negative bacilli -E. coli CT abdomen pelvis: No signs of acute process Lumbar puncture not recommended by neurology service MRSA swab: negative Currently on IV Zosyn will transition to Rocephin IV Repeat blood culture on 11/21/2021 showed no growth Clinically improved (5) Seizure: Plan: EEG: Mildly diffusely abnormal EEG, consistent with a generalized nonfocal encephalopathy without associated potentially epileptogenic features Continue Keppra 500 mg every 12 hours no driving for 6 months from last seizure date, no heights, no bathing or swimming alone avoid ativan for seizure activity, load phenytoin if needed as per neuro (6) Rhabdomyolysis: Plan: Mild, CPK 863 --> 375 Renal function stable Continue IV fluids Mild troponin elevation Stable at 0.1 EKG no signs of acute ischemia or infarct Echocardiogram no wall motion abnormalities Likely demand ischemia Hypertension. BP meds on hold to allow permissive hypertension Propranolol resumed today Will resume amlodipine in am Hyperlipidemia. resume usual Atorvastatin 20mg Panic disorder, on Ativan p.r.n. The patient will be on IV Ativan p.r.n. Left Humerus fracture. Sling ordered by ER. 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 No deep venous thrombus on the right. Continue coumadin DVT prophylaxis.Sequential compression devices for now. Holding heparin in light of extensive CVA DISPOSITION: Closely monitor in the tele floor. To be determined. CODE STATUS: DNR/DNI as per discussion with the son. Admission and Anticipated Discharge Date Admission Date: November 19, 2021 Subjective Patient was seen and examined for follow-up of acute CVA, seizure episode, encephalopathy, gram negative bacilli bacteremia, anemia from epistaxis vs. GI bleed. Lying in bed with no acute distress eating Patient said that she is feeling much better. She said that she able to move her left upper extremity alittle bit now Denies any chest pain, palpitation, dizziness, shortness of breath. Review of Systems Review of Systems: All systems reviewed & are unremarkable except as noted in Subjective Physical Exam Physical Exam: General- oriented x 3, not in distress, speaks in sentences with no effort or accessory muscle use Eyes- anicteric Neck- no JVD Lungs- clear breath sounds bilaterally, no rales/wheezes Heart- normal rate, regular rhythm; no murmurs Abdomen- normal bowel sounds, nondistended, soft, nontender Extremities- no pretibial edema, no calf tenderness Neuro- alert, oriented x 3; (+) mild left facial droop, (+) left hemiplegia- motor strength 1/5, no gross focal neurologic deficits Skin- warm & dry Results & Data Results & Data ([facility]) Vital Signs (Past 12 Hours) Vital Signs Temp Pulse Resp BP Pulse Ox 11/23/21 15:59 36.8 C 70 19 153/73 H 97 11/23/21 11:44 37.1 C 104 H 18 138/76 96 11/23/21 06:59 36.9 C 90 18 130/70 94 (1) Rhabdomyolysis Encounter type: initial encounter Rhabdomyolysis type: traumatic Qualified Code(s): T79.6XXA - Traumatic ischemia of muscle, initial encounter
[2021-11-23] MEDS: SODIUM CHLORIDE 0.9% 1000ML 1,000 ML IV SCH (17:46)
[2021-11-23] MEDS: MELATONIN 3 MG TAB PO PRN (23:54)
[2021-11-24] MEDS ORDERED: PROMETHAZINE HCL 12.5 MG in SODIUM CHLORIDE 0.9% 50 ML IV PRN (01:07)
--- NOTE | 2021-11-24 01:12 | Communication Note ---
Date of Service: November 24, 2021 Made aware by RN of active patient hematemesis. Patient denies headache, abdominal pain. New cough symptoms from choking on vomitus as per patient. Some shortness of breath. Patient denies chest pain. O2 sats 80s. SBP initially 200s later noted to be 80s as per RN. PPE: Slightly uncomfortable Pallor O2 via nasal cannula Expiratory wheezes Abdominal distention without tenderness Chest x-ray as per my interpretation atelectasis AP Hypotension secondary to recurrent UGI B Hypoxemic respiratory failure secondary to probable aspiration pneumonitis secondary to above CBC, coags now IVF, appropriate to hold antihypertensives for now Hold Coumadin IV PPI Notify GI of recurrent GI bleed N.p.o. until patient seen by GI in anticipation of procedure Follow H&H, transfuse PRBC if hemoglobin less than 8 and or for symptomatic anemia Supplemental O2 Baseline ABG Stat nebs now for bronchospasm Unasyn in place of ceftriaxone for aspiration mellitus Will relay to AM provider. Unasyn
[2021-11-24] MEDS ORDERED: ALBUT/IPRATROP 3MG/0.5MG NEB 3 ML VIAL NEB STA (01:25)
[2021-11-24 01:35] LABS: Basophils # (auto) 0.09 K/uL (0-0.2); Basophils % (auto) 1.5 %; Eosinophils # (auto) 0.37 K/uL (0-0.5); Eosinophils % (auto) 6.3 %; Hematocrit (blood only) 29.8 % (37-47); Hemoglobin 9.6 g/dL (12.0-16.0); Immature Granulocytes # (auto) 0.05 K/uL (0.00-0.02); Immature Granulocytes % (auto) 0.8 %; Lymphocytes # (auto) 2.13 K/uL (1.2-3.4); Mean Corpuscular Hemoglobin 32.1 pg (25-34); Mean Corpuscular Hgb Conc 32.2 g/dL (32-36); Mean Corpuscular Volume 99.7 fL (80-100); Mean Platelet Volume 8.6 fL (7.4-10.4); Monocytes # (auto) 0.54 K/uL (0.11-0.59); Monocytes % (auto) 9.1 %; Neutrophils # (auto) 2.73 K/uL (1.4-6.5); Neutrophils % (auto) 46.3 %; Nucleated RBC # (auto) 0.04 K/uL (0-0); Nucleated RBC % (auto) 0.6 %; Platelet Count 247 K/uL (130-400); RDW Coefficient of Variation 13.6 % (11.5-14.5); RDW Standard Deviation 47.9 fL (36.4-46.3); Red Blood Count 2.99 M/uL (4.2-5.4); White Blood Count 5.91 K/uL (4.8-10.8)
[2021-11-24] MEDS ORDERED: SODIUM CHLORIDE 0.9% 500 ML IV ONE ×2 (01:35→02:03)
[2021-11-24 01:39] LABS: Base Excess ABG 1.6 mEq/L (-9-1.8); HCO3 ABG 26 mmol/L (19-24); Oxygen Saturation ABG 98.1 % (90-95); PCO2 ABG 38 mmHg (35-46); PO2 ABG 108 mmHg (80-95); pH ABG 7.45 (7.35-7.45)
[2021-11-24 01:40] LABS: Allen Test Pos (Pos)
[2021-11-24 01:45] LABS: Partial Thromboplastin Ratio 0.9; Partial Thromboplastin Time 22.5 Seconds (21.0-31.0); Prothrombin Time 10.3 Seconds (9.0-12.0)
[2021-11-24] MEDS ORDERED: ALBUT/IPRATROP 3MG/0.5MG NEB 3 ML VIAL ONE (01:49)
[2021-11-24] MEDS ORDERED: MAGNESIUM SULFATE / D5W 1 GM/100 ML BAG IV ONE (02:00)
[2021-11-24] MEDS: PANTOprazole 40 MG in DEXTROSE 5% 100 ML IV SCH ×3 (02:04→11:59)
[2021-11-24 02:08] LABS: Albumin Globulin Ratio 1.4 (0.9-2); Albumin Level 3.4 gm/dl (3.4-5.0); BUN Creatinine Ratio 13.6 (10-20); Bilirubin,Total 0.4 mg/dl (0.2-1.0); Calcium 8.7 mg/dl (8.5-10.1); Creatinine Clr Calc Pharmacy 61.9 ml/min; Est GFR (African American) 92.1 ml/min; Est GFR (Non-African American) 79.4 ml/min; Globulin 2.5 gm/dl (2.5-4.0); Potassium 4.2 mmol/L (3.5-5.1); Total Protein 5.9 gm/dl (6.0-8.3)
[2021-11-24] MEDS ORDERED: LACTATED RINGER'S 1,000 ML IV SCH ×2 (02:30→03:00)
[2021-11-24] MEDS: AMPICILLIN/SULBACTAM SOD 3,000 MG in 0.9 % SODIUM CHLORIDE 100 ML IV SCH ×2 (03:05→08:07)
[2021-11-24] MEDS ORDERED: SODIUM CHLORIDE 0.9% 1000ML 1,000 ML IV ONE (03:37)
[2021-11-24 06:20] LABS: Hematocrit (blood only) 22.9 % (37-47); Hemoglobin 7.3 g/dL (12.0-16.0)
[2021-11-24] MEDS ORDERED: SODIUM CHLORIDE 0.9% 250 ML IV PRN (06:22)
--- NOTE | 2021-11-24 06:54 | XRay Report ---
XR chest 1V portable HISTORY: 86 years-old Female low o2 acute hematemesis with hypoxia COMPARISON: Chest radiograph 11/19/2021 TECHNIQUE: Portable AP view of the chest FINDINGS: Cardiac silhouette is enlarged. Atherosclerotic plaque of the thoracic aorta. No pneumothorax, large pleural effusion or overt pulmonary edema. Mild interstitial coarsening of the lung bases suggest ate lectasis/scarring. Degenerative changes of the shoulders and spine. IMPRESSION: No acute process. ACT 112: Negative or not required by law. The above report was generated using voice recognition software. It may contain grammatical, syntax o r spelling errors. Electronically signed by: Wero Quan M.D. 11/24/2021 6:52 AM
[2021-11-24] MEDS: levETIRAcetam 500 MG in 0.9 % SODIUM CHLORIDE 100 ML IV SCH (08:06)
[2021-11-24] MEDS ORDERED: AMPICILLIN/SULBACTAM CONSULT ACTIVE PRN (09:00)
--- NOTE | 2021-11-24 09:25 | Communication Note ---
Date of Service: November 24, 2021 GI communication note: I was asked to re-evaluate pt again by the hospitalist (Dr. Lorena Cristina). Overnight pt had vomited bright red blood about 300ml in amount per RN report w large clot. Blood ct dropped to 7 today, she is receiving PRBC transfusion. Upon questioning RN and pt, it was found out that pt had large amt of epistaxis and pt was "spitting the blood out". She denies n/v, abd pain. Abd exam benign today. She had a BM this AM, stool colored green, no melena. No new plans for GI. Pls recall prn. Patient had been seen by Dr. Miguel in the recent past. Please see the POST ANESTHESIA NURSE notes for further details
--- NOTE | 2021-11-24 12:10 | Hospitalist Progress Note ---
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 Large acute to subacute infarct involving the posterior right MCA territory as above. 2. There are additional punctate foci of acute to subacute ischemia within the right frontal lobe and right subinsular cortex. These findings suggests an embolic phenomenon. 3. There is no hemorrhage or midline shift. Echocardiogram: EF 60-65%, Gr 1 diastolic dysfunction, LV wall motion is normal equipment monitor phototypesetting showed no arrhythmias Neurology on board recommend to restart Coumadin with aspirin Plavix discontinued Repeat CT head showed no acute intracranial abnormality CTA head and neck showed Redemonstration of hypodensity in the right posterior MCA territory with focal losses of bryant-white differentiation, compatible with subacute infarct. No occlusion, hemodynamically significant stenosis, aneurysm, dissection, or arteriovenous malformation in the major intracranial arteries PT and OT evaluation case discussed with neuro that recommended coumadin and aspirin Will need outpatient Zio patch Her pot firer Dr. Mary can make the ultimate decision about the coumadin if there is any history of Afib Follow-up with neurology in 4 to 6 weeks (2) Acute GI bleeding: Plan: Epistaxis As per son, patient had epistaxis Saturday at home Acute blood loss anemia Hemoglobin decreased from 13 --> 8.4-->8.6->9-->7.3 today Pt had 1 episode of epistaxis and hematemesis last night, currently no active bleeding noted S/P 1 unit PRBC is being transfused now Will check H/H later and transfused if Hgb less than 8 GI was notified to reevaluate the patient this morning No plan for EGD at this time since pt has no active bleeding this morning and had a BM early with no blood or melena Continue to hold aspirin and Coumadin continue Protonix IV drip for now Will consult ENT for the epistaxis since pt will be placed on coumadin and aspirin Continue monitor closely (3) Fever: Plan: Was hypothermic initially, TSH normal Patient has been afebrile for about 72 hours Likely secondary to underlying infection and stroke Management of infection, bacteremia per below Continue IV antibiotic (4) Bacteremia: Plan: Blood culture: Gram-negative bacilli -E. coli CT abdomen pelvis: No signs of acute process Lumbar puncture not recommended by neurology service MRSA swab: negative Currently on IV Zosyn will transition to Rocephin IV Repeat blood culture on 11/21/2021 showed no growth Clinically improved (5) Seizure: Plan: EEG: Mildly diffusely abnormal EEG, consistent with a generalized nonfocal encephalopathy without associated potentially epileptogenic features Continue Keppra 500 mg every 12 hours no driving for 6 months from last seizure date, no heights, no bathing or swimming alone avoid ativan for seizure activity, load phenytoin if needed as per neuro (6) Rhabdomyolysis: Plan: Mild, CPK 863 --> 375 Renal function stable Continue IV fluids Mild troponin elevation Stable at 0.1 EKG no signs of acute ischemia or infarct Echocardiogram no wall motion abnormalities Likely demand ischemia Hypertension. BP meds on hold to allow permissive hypertension Propranolol resumed today Will resume amlodipine in am Hyperlipidemia. resume usual Atorvastatin 20mg Panic disorder, on Ativan p.r.n. The patient will be on IV Ativan p.r.n. Left Humerus fracture. Sling ordered by ER. 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 No deep venous thrombus on the right. Continue coumadin DVT prophylaxis.Sequential compression devices for now. 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 Will need in patient rehab CODE STATUS: DNR/DNI Admission and Anticipated Discharge Date Admission Date: November 19, 2021 Subjective Patient was seen and examined for follow-up of acute CVA, seizure episode, encephalopathy, gram negative bacilli bacteremia, anemia from epistaxis vs. GI bleed. Lying in bed with no acute distress Pt had an episode of GI bleed and epistaxis last night Aspirin and coumadin were placed on hold last night Her hemoglobin dropped to 7.3 this morning and currently is being transfused 1 unit PRBC She said that she feels fine now and no further episode of GI bleed and epistaxis She asking for food and said that she is hungry She said that she is feeling much better this morning Denies any chest pain, palpitation, dizziness, shortness of breath. Review of Systems Review of Systems: All systems reviewed & are unremarkable except as noted in Subjective Physical Exam Physical Exam: General- oriented x 3, not in distress, speaks in sentences with no effort or accessory muscle use Eyes- anicteric Neck- no JVD Lungs- clear breath sounds bilaterally, no rales/wheezes Heart- normal rate, regular rhythm; no murmurs Abdomen- normal bowel sounds, nondistended, soft, nontender Extremities- no pretibial edema, no calf tenderness Neuro- alert, oriented x 3; (+) mild left facial droop, (+) left hemiplegia- motor strength 3/5, no gross focal neurologic deficits Skin- warm & dry Results & Data Results & Data ([facility]) Vital Signs (Past 12 Hours) Vital Signs Temp Pulse Pulse Resp BP BP BP 11/24/21 10:30 36.9 C 78 18 129/75 11/24/21 09:47 36.5 C 75 18 138/74 11/24/21 08:47 37.0 C 81 18 132/80 11/24/21 08:17 37.0 C 83 18 123/68 11/24/21 08:02 37.0 C 76 18 124/69 11/24/21 07:35 37.0 C 75 18 124/56 L 11/24/21 07:12 83 11/24/21 06:43 76 20 123/86 11/24/21 05:31 77 119/67 11/24/21 05:02 79 108/62 11/24/21 04:29 77 96/55 L 11/24/21 04:08 36.9 C 72 100/58 L 11/24/21 04:03 36.9 C 11/24/21 03:52 73 90/52 L 11/24/21 03:40 75 91/53 L 11/24/21 03:32 78 87/50 L 11/24/21 03:23 77 86/50 L 11/24/21 03:01 82 93/57 L 11/24/21 02:46 82 97/60 L 11/24/21 02:31 77 102/61 11/24/21 02:15 78 103/63 11/24/21 02:06 80 96/58 L 11/24/21 01:59 87 88/53 L 11/24/21 01:41 96 H 94/61 L 11/24/21 01:37 97/65 L 11/24/21 01:30 96 H 89/63 L 11/24/21 01:24 100 H 100/65 11/24/21 01:18 102 H 107/80 Pulse Ox 11/24/21 10:30 95 11/24/21 09:47 94 11/24/21 08:47 93 11/24/21 08:17 95 11/24/21 08:02 99 11/24/21 07:35 99 11/24/21 07:12 11/24/21 06:43 11/24/21 05:31 93 11/24/21 05:02 93 11/24/21 04:29 95 11/24/21 04:08 93 11/24/21 04:03 11/24/21 03:52 92 11/24/21 03:40 91 11/24/21 03:32 92 11/24/21 03:23 93 11/24/21 03:01 11/24/21 02:46 11/24/21 02:31 99 11/24/21 02:15 99 11/24/21 02:06 89 L 11/24/21 01:59 87 L 11/24/21 01:41 93 11/24/21 01:37 11/24/21 01:30 94 11/24/21 01:24 97 11/24/21 01:18 98 (1) Rhabdomyolysis Encounter type: initial encounter Rhabdomyolysis type: traumatic Qualified Code(s): T79.6XXA - Traumatic ischemia of muscle, initial encounter
--- NOTE | 2021-11-24 12:13 | Communication Note ---
Date of Service: November 24, 2021 note Code gustabo called because pt had a bleeding episode with epistaxis and vomiting large clots. When I came pt was unresponsive and no pulse noted She vomited large amount of blood and clot with dark black stool as well Inside her mouth was full with blood Pt was unresponsive with eyes closed No heart sound, no lung sound noted on auscultation No pulse and no tactile stimuli Pupils no reactive to light Pt was a DNR and Time of :10:55 AM I called his son Anand to inform about pt was ceased to breath certificate will be complete and sign electronically MD Ibeth
[2021-11-24] MEDS ORDERED: WARFARIN SOD 3 MG TAB PO SCH (16:00)
--- NOTE | 2021-11-24 23:41 | Discharge Summary ---
Date of Service November 24, 2021 Admission HPI Per Admitting Provider CHIEF COMPLAINT: Unresponsiveness. 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 As per son, the patient is generally active, she can take care of herself, and she has no other complaints. Yesterday he was with his mother from 6 to 9 p.m. and she was doing fine and today around 6:30pm when he went to visit her, he found her in the bedroom unresponsive in a pool of blood. He had thought that the patient might have vomited blood because he witnessed similar episode with his father in the past. Her son called EMS and she was brought in here. She has blood all over the face and the extremities. No obvious source of bleeding. As per Nursing staff when she came in as per doctor, she could tell her name and she said that she was cold. Her temperature was 34. She was given warm fluids and placed on licha hugger, and temperature is improving .She is on Coumadin for DVT as per the son but her INR only 1.1. During CAT scan, she had an episode of seizure less than 1 minute. She was loaded with Keppra and given IV Ativan. With IV Ativan, currently she is mostly drowsy, moves her extremities, moves more on the right side than the left side. Imaging studies, she had a CT of the head, CT of the face, cervical spine CT with CT abdomen and pelvis, chest x-ray, shoulder x-ray and pelvic x-ray. Shoulder x-ray showing possible fracture of the base of the tuberosity of the humerus on the left side and bilateral maxillary and right sphenoid sinusitis. Otherwise, all of the imaging studies are unremarkable. As per son, there was no recent illnesses. During William time, she had a booster dose of COVID vaccine. After that, she was sick for 1 week with diarrhea, but it got resolved. Otherwise, she is doing fine.Could not get any history from the patient. Admission Exam Per Admitting Provider GENERAL: The patient is drowsy. Moves extremities on painful stimuli, more on the right side. VITAL SIGNS: Temperature 34, pulse 99, respiratory rate 20, blood pressure 161/77, oxygen 100% on 2 liters. HEENT: Pupils small and sluggish reactive to light, drying of the blood seen on the face. NECK: No neck masses seen. CARDIOVASCULAR: S1 and S2 heard. Regular rate and rhythm. No murmur, no gallop. RESPIRATORY SYSTEM: Normal AP diameter. No accessory muscle use. No wheezing, no crackles. ABDOMEN: Soft, bowel sounds present, no distention, CENTRAL NERVOUS SYSTEM: Mostly unresponsive. Moves extremities on painful stimuli, more on the right side. EXTREMITIES: No edema, no erythema. Principal Diagnosis CVA (cerebral vascular accident): Left Hemiplegia Acute GI bleeding: Epistaxis Fever: Seizure: Rhabdomyolysis: Hypertension. Hyperlipidemia. Left Humerus fracture. Hx of DVT Discharge Exam unresponsive and no pulse noted Pt was unresponsive with eyes closed No heart sound, no lung sound noted on auscultation No pulse and no tactile stimuli Pupils no reactive to light Discharge Data Allergies Allergy/AdvReac Type Severity Reaction Status Date / Time metronidazole Allergy Mild Unknown Verified 11/19/21 21:15 Consultations 11/19/21 21:59 ED Decision to Admit Stat 11/20/21 08:00 Consult Gastroenterology Routine Consult Neurology Routine Consult Orthopedic Surgery Routine 11/24/21 10:04 Consult Otolaryngology (Head and Neck) Routine Ordered Studies 11/19/21 20:39 CT abd pelvis IV con only Stat 11/19/21 20:40 CT cervical spine wo con Stat CT facial bones wo con Stat CT head/brain wo con Stat 11/19/21 22:47 CT shoulder LT wo con Urgent 11/20/21 08:18 MR brain wo/w con Routine 11/22/21 09:00 CT head/brain wo con Routine 11/23/21 01:18 CT angio head wo/w Routine CT angio neck with con Routine 11/23/21 08:30 US venous doppler LE BI Routine XR chest 1V portable HISTORY: 86 years-old Female low o2 acute hematemesis with hypoxia COMPARISON: Chest radiograph 11/19/2021 TECHNIQUE: Portable AP view of the chest FINDINGS: Cardiac silhouette is enlarged. Atherosclerotic plaque of the thoracic aorta. No pneumothorax, large pleural effusion or overt pulmonary edema. Mild interstitial coarsening of the lung bases suggest atelectasis/scarring. Degenerative changes of the shoulders and spine. IMPRESSION: No acute process. ACT 112: Negative or not required by law. The above report was generated using voice recognition software. It may contain grammatical, syntax or spelling errors. Electronically signed by: Wero Quan M.D. 11/24/2021 6:52 AM Dictated:11/24/21650 Transcribed: 11/24/21650 US venous doppler LE BI CLINICAL HISTORY: r/o dvt COMPARISON: None available at the time of this dictation. TECHNIQUE: Bilateral lower extremity real-time compression venous ultrasound with Color Doppler imaging. Utilizing real-time ultrasonic imaging multiple real time high-resolution ultrasonic images with compression and noncompression maneuvers of the deep venous system in addition to color doppler imaging were performed from the common femoral vein through the proximal calf veins. FINDINGS: No deep venous thrombus is seen on the right. In the left popliteal vein there is the appearance of a nonocclusive thrombus. Impression: Nonocclusive thrombus in the left popliteal vein. No deep venous thrombus on the right. ACT 112: Negative or not required by law. Electronically signed by: Addy Lawton M.D. 11/23/2021 9:10 AM Dictated:11/23/21906 Transcribed: 11/23/21906 CT ANGIOGRAPHY OF THE NECK WITH CONTRAST CLINICAL HISTORY: Large acute to subacute infarct. COMPARISON STUDY: CT of the cervical spine November 19, 2021. Technique: CT angiography of the carotid and vertebral arteries was obtained using Optiray and 3D reconstruction on an independent workstation. NASCET criteria was utilized. Automated exposure control was utilized for the study. A dose lowering technique was utilized adhering to the principles of ALARA. Findings: Mild atherosclerotic plaque of the aortic arch is noted. Visualized portions of the lung apices are unremarkable. No cervical lymphadenopathy is present. There is no cervical spine fracture. Multilevel degenerative disc disease is most obvious at C5-C6 and C6-C7. The bilateral common carotid, cervical internal carotid and vertebral arteries are patent. There is mild atherosclerotic plaque within the vessels of the neck. There is no dissection. No intraluminal thrombus is identified. CTA of the head will be reported separately. IMPRESSION: No stenosis or dissection within the bilateral common carotid, cervical internal carotid or vertebral arteries. Mild atherosclerotic plaque. ACT 112: Negative or not required by law. Electronically signed by: Bob Sanchez M.D. 11/23/2021 10:01 AM Dictated:11/23/21 0956 Transcribed: 11/23/[address] angio head wo/w CLINICAL HISTORY: Large acute to subacute infarct TECHNIQUE: Contiguous axial CT images of the head were acquired from the base of the skull to the vertex without intravenous contrast administration. CT angiography of the head was performed following intravenous administration of iodinated contrast. Coronal and sagittal MIPS were obtained from the axial data set and were submitted for review. Automated dose lowering techniques and/or adjustment according to patient size were utilized for this examination. All measurements were calculated based on NASCET criteria. Comparison: Comparison is made to CT head 11/22/2021 FINDINGS: CT head: Hypodensity in the right posterior MCA territory is seen with minimal loss of bryant-white differentiation at some regions. Opacification of the right sphenoid sinus is unchanged. CTA Head: The anterior and posterior cerebral circulations are patent. No hemodynamically significant stenosis, aneurysm, dissection, or arteriovenous malformation is shown. Particular, the right MCA appears patent to the M3 segment without evidence of abrupt cut off. IMPRESSION: 1. Redemonstration of hypodensity in the right posterior MCA territory with focal losses of bryant-white differentiation, compatible with subacute infarct. 2. No occlusion, hemodynamically significant stenosis, aneurysm, dissection, or arteriovenous malformation in the major intracranial arteries. In particular, no abrupt cut off of the right MCA is noted. Assessment of stenosis of the internal carotid arteries is based on NASCET criteria. ACT 112: Negative or not required by law. Electronically signed by: Addy Lawton M.D. 11/23/2021 11:01 AM Dictated:11/23/21 1047 Transcribed: 11/23/[address] head/brain wo con CLINICAL HISTORY: Nosebleed, weakness Technique: Contiguous axial CT images of the head were acquired from the base of the skull to the vertex without intravenous contrast administration. Images were viewed in brain, subdural and bone windows. Automated dose lowering techniques and/or adjustment according to patient size were utilized for this exam. Comparison: Comparison is made to CT head 11/19/2021 Findings: Areas of decreased attenuation are present in the periventricular and subcortical white matter bilaterally consistent with small vessel ischemic disease. Generalized cerebral atrophy with commensurate enlargement of the ventricles, sulci, and cisterns is also present. There is no acute intracranial hemorrhage or evidence of acute territorial infarction. No shift of the midline structures, mass effect, or extra-axial abnormalities are shown. Atherosclerotic calcifications are present in the intracranial segments of the internal carotid arteries. Focal hypodensity in the right centrum semiovale Right sphenoid sinus opacification is seen. The orbits appear normal. There are no acute fractures of the calvaria or scalp swelling. Impression: No evidence of acute intracranial abnormality. Right sphenoid sinus opacification is unchanged. ACT 112: Negative or not required by law. Electronically signed by: Addy Lawton M.D. 11/22/2021 10:14 AM Dictated:11/22/21 1009 Transcribed: 11/22/21 100 MRI OF THE BRAIN COMBO CLINICAL HISTORY: Seizure. COMPARISON STUDY: CT of the brain dated 11/19/2021. TECHNIQUE: MRI of the brain was performed utilizing various T1 and T2-weighted sequences in the axial, sagittal, and coronal planes. Contrast-enhanced sequences were acquired following the administration of 7.5 cc of Gadavist. The examination is degraded by motion artifact. FINDINGS: Brain parenchyma: There is a large region of restricted diffusion seen involving the high right frontoparietal cortex. This is in the posterior MCA distribution. There are additional punctate foci of restricted diffusion in the right frontal and right subinsular cortex. There is age-related involutional change noting moderate subcortical and periventricular microangiopathic disease. There is no hemorrhage or midline shift. No enhancing mass lesion is identified on the postcontrast images. A small chronic infarct is seen in the left cerebellar hemisphere. No extra-axial fluid collection is seen. The cerebellar tonsils are normal in configuration. Ventricles, sulci, and cisterns: Prominent secondary to involutional change. Pituitary and sella: Unremarkable. Intracranial vasculature: Normal flow voids are maintained at the skull base. Orbits: The bony orbits are grossly intact. Orbital contents are normal in appearance noting bilateral ocular lens implants. Sinuses and mastoids: There is delayed opacification of the right sphenoid sinus. Air-fluid levels are noted in the maxillary antra. Calvarium: Unremarkable. Cervical cord: Partially visualized cervical spinal cord is normal in morphology and signal intensity. IMPRESSION: 1. Large acute to subacute infarct involving the posterior right MCA territory as above. 2. There are additional punctate foci of acute to subacute ischemia within the right frontal lobe and right subinsular cortex. These findings suggests an embolic phenomenon. 3. There is no hemorrhage or midline shift. ACT 112: Negative or not required by law. Electronically signed by: Ambrose Beltre M.D. 11/20/2021 2:24 PM Dictated:11/20/211407 Transcribed: 11/20/211407 CT shoulder LT wo con CLINICAL HISTORY: Left shoulder injury with suspicion of nondisplaced fracture on x-rays. CT to further evaluate COMPARISON STUDY: Standard radiographs from 11/19/2021 CT DOSE: 306.92 mGy.cm TECHNIQUE: Standard CT of the is performed without IV contrast. Multiplanar reconstruction is performed. A dose lowering technique was utilized adhering to the principles of ALARA. FINDINGS: Bones: There is no evidence for an acute humeral head fracture is suspected. However, there is cortical irregularity of the humeral head superolaterally which is most characteristic of an old impacted fracture. There is no evidence for dislocation. There are no lytic or blastic lesions. Joints: There is mild narrowing of the glenohumeral joint and acromioclavicular joint with degenerative changes present. The bones are in anatomic alignment. Soft tissues: There is no focal soft tissue swelling. There are no focal fluid collections. IMPRESSION: No acute osseous pathology. However, there is an old, impacted fracture of the humeral head superolaterally. 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 ACT 112: Negative or not required by law. Electronically signed by: Ramone Mclain M.D. 11/20/2021 12:11 AM Dictated:11/20/21 0008 Transcribed: 11/20/217 XR shoulder LT min 2V routine CLINICAL HISTORY: found down. COMPARISON STUDY: No previous studies for comparison. TECHNIQUE: 2 left shoulder views FINDINGS: Bones: There is suspicion of a vertically oriented fracture through the base of the tuberosity of the humerus. CT would be the study of choice for further evaluation. There is no lytic or blastic lesion. Joints: The joint spaces are maintained. The bones are in anatomic alignment. Soft tissues: There is no focal soft tissue abnormality. There is no radiopaque foreign body. IMPRESSION: Suspicion of a vertically oriented fracture through the base of the tuberosity of the humerus. CT of the left shoulder with the study of choice for further evaluation. ACT 112: Negative or not required by law. Electronically signed by: Ramone Mclain M.D. 11/19/2021 10:22 PM Dictated:11/19/212219 Transcribed: 11/19/212219 XR pelvis 1-2V routine CLINICAL HISTORY: found down. COMPARISON STUDY: No previous studies for comparison. TECHNIQUE: [A single AP radiograph was obtained. FINDINGS: There is no evidence for an acute fracture. There is moderate to marked mark rowing of the hip joint spaces, right greater than left. The SI joints are intact bilaterally. Degenerative changes are seen involving the pubic symphysis. The remaining visualized bones of the pelvis are intact. No focal soft tissue abnormalities identified. IMPRESSION: No acute abnormality. Degenerative changes. ACT 112: Negative or not required by law. Electronically signed by: Ramone Mclain M.D. 11/19/2021 10:17 PM Dictated:11/19/212213 Transcribed: 11/19/212213 CT head/brain wo con CLINICAL HISTORY: Patient found down on ground. Evaluate for head injury COMPARISON STUDY: No previous studies for comparison. CT DOSE: TECHNIQUE: Standard CT of the Brain was performed without IV contrast. A dose lowering technique was utilized adhering to the principles of ALARA. FINDINGS: Extraaxial space: There is no evidence for subdural hematoma. There are no extra-axial fluid collections. Ventricles and cisterns: The ventricles are mildly dilated bilaterally. There is no evidence for midline shift or mass effect. Parenchyma: There is no subarachnoid or intraparenchymal hemorrhage. There is no evidence for an acute infarct or cerebral edema. There is mild cerebral cortical atrophy present. There is homogeneous attenuation of the brain parenchyma. There are no gross mass lesions. Osseous structures: There is no evidence for an acute fracture. There is almost complete opacification of the right sphenoid sinus. Fluid levels are present within the maxillary antra bilaterally. The remaining visualized paranasal sinuses are clear. The mastoid air cells are clear bilaterally. Soft tissues: There is no evidence for focal soft tissue swelling. IMPRESSION: No acute intracerebral pathology. Mild cerebral cortical atrophy. Right sphenoid and bilateral maxillary sinusitis. ACT 112: Negative or not required by law. Electronically signed by: Ramone Mclain M.D. 11/19/2021 9:28 PM Dictated:11/19/212119 Transcribed: 11/19/212119 CT facial bones wo con CLINICAL HISTORY: Patient found down on ground bleeding. COMPARISON STUDY: No previous studies for comparison. CT DOSE: TECHNIQUE: Standard CT of the Facial Bones and Orbits was performed without IV contrast. A dose lowering technique was utilized adhering to the principles of ALARA. FINDINGS: Bones: There are no displaced fractures identified. The orbital rims are intact bilaterally. The zygomatic arches are intact bilaterally. Nasal bones are intact. The nasal septum is in the midline. The mandible and maxilla are intact. Paranasal sinuses: There is diffuse mucosal thickening of the right sphenoid sinus. Fluid levels are present within the maxillary antra bilaterally. Soft tissues: There is no focal soft tissue swelling. IMPRESSION: No acute abnormality. Bilateral maxillary and right sphenoid sinusitis. ACT 112: Negative or not required by law. Electronically signed by: Ramone Mclain M.D. 11/19/2021 9:33 PM Dictated:11/19/212127 Transcribed: 11/19/212127 XR chest 1V portable CLINICAL HISTORY: found down. COMPARISON STUDY: No previous studies for comparison. TECHNIQUE: 1 view of the chest FINDINGS: Single frontal view of the chest demonstrates the cardiomediastinal silhouette to be within normal limits. The lungs are clear of alveolar opacities. There is no evidence for pleural effusion. There is no evidence for vascular congestion. There is no acute osseous pathology. IMPRESSION: No acute cardiopulmonary disease. ACT 112: Negative or not required by law. Electronically signed by: Ramone Mclain M.D. 11/19/2021 10:20 PM Dictated:11/19/212219 Transcribed: 11/19/212219 CT cervical spine wo con CLINICAL HISTORY: Patient found down on ground. Unresponsive. COMPARISON STUDY: No previous studies for comparison. CT DOSE: TECHNIQUE: Standard CT of the Cervical Spine was performed without IV contrast. A dose lowering technique was utilized adhering to the principles of ALARA. FINDINGS: Bones: The bones are osteopenic. There is no evidence for an acute fracture or malalignment. The heights of the vertebral bodies are maintained. The vertebral bodies are in anatomic alignment. The odontoid is intact and the atlantoaxial articulation is within normal limits. Disc spaces:There is moderate to marked disc space narrowing at C5-6 and C6-7 with endplate osteophyte formation. Apophyseal joints:Degenerative apophyseal joint disease is also present. Soft tissues:The prevertebral soft tissues are within normal limits. IMPRESSION: Osteopenia with no acute abnormality. Degenerative disc and degenerative joint disease. ACT 112: Negative or not required by law. Electronically signed by: Ramone Mclain M.D. 11/19/2021 9:35 PM Dictated:11/19/212132 Transcribed: 11/19/212132 CT abd pelvis IV con only CLINICAL HISTORY: Patient found down on ground. Unresponsive. COMPARISON STUDY: 01/24/2007 CT DOSE: 1785.40 mGy.cm TECHNIQUE: Standard CT of the Abdomen and Pelvis was performed with IV contrast. A dose lowering technique was utilized adhering to the principles of ALARA. Contrast Volume: Optiray 320, 95 ml. The patient did not receive oral contrast. FINDINGS: There is breathing motion artifact present. Lung base: The lung bases are clear. Abdominal cavity: There is no evidence for abdominal mass, adenopathy or ascites. Liver: There is homogeneous attenuation of the liver parenchyma. There is no evidence for enhancing mass lesion. Spleen: There is homogeneous attenuation of the splenic parenchyma. There is no enhancing mass lesion. Pancreas: There is homogeneous attenuation of the pancreatic parenchyma. There is no evidence for mass lesion or peripancreatic fluid collection. Gall Bladder: The gallbladder is well distended with no evidence for intraluminal calculi, wall thickening or pericholecystic edema. Adrenal glands: The adrenal glands are normal in size and attenuation. There is no evidence for enhancing mass lesion. Kidneys: There is homogeneous attenuation of the renal parenchyma bilaterally. There is no evidence for renal calculus or hydronephrosis. There is no evidence for enhancing mass. Bowel: The bowel loops are normally placed within the abdomen and pelvis without evidence for dilatation or obstruction. There is no evidence for mass lesion. There are no inflammatory changes present. There is no evidence for free air. Bladder: The bladder is distended with no evidence for focal mass, calculus or diverticulum. : There is no evidence for pelvic mass or adenopathy. There is no evidence for pelvic ascites. Vasculature: There is no evidence for aneurysmal dilatation of the abdominal aorta. Mild atherosclerotic calcification is present. Osseous structures: There is no acute osseous pathology. Extensive degenerative changes are seen within the spine. IMPRESSION: 1. No acute intra-abdominal or pelvic abnormality. The study is limited by breathing motion artifact. ACT 112: Negative or not required by law. Electronically signed by: Ramone Mclain M.D. 11/19/2021 9:42 PM Dictated:11/19/212135 Transcribed: 11/19/212135 Hospital Course (1) Acute GI bleeding: Massive GI bleeding Epistaxis (blood in the nose seems to be coming from the GI area) As per son, patient had epistaxis Saturday at home Acute blood loss anemia Hemoglobin decreased from 13 --> 8.4-->8.6->9-->7.3 today Pt had 1 episode of epistaxis and hematemesis last night, currently no active bleeding noted S/P 1 unit PRBC is being transfused Will check H/H later and transfused if Hgb less than 8 GI was notified to reevaluate the patient this morning No plan for EGD at this time since pt has no active bleeding this morning and had a BM early with no blood or melena as per GI Continue to hold aspirin and Coumadin continue Protonix IV drip for now Will consult ENT for the epistaxis to further eval since pt will be placed on coumadin and aspirin Continue monitor closely Addendum note Code purple called because pt had a bleeding episode with epistaxis and vomiting large clots. When I came pt was unresponsive and no pulse noted She vomited large amount of blood and clot with dark black stool as well Inside her mouth was full with blood Pt was unresponsive with eyes closed No heart sound, no lung sound noted on auscultation No pulse and no tactile stimuli Pupils no reactive to light Pt was a DNR and Time of :10:55 AM I called his son Annad to inform about pt was ceased to breath certificate will be complete and sign electronically (2) CVA (cerebral vascular accident): Left Hemiplegia Brain MRI: 1. Large acute to subacute infarct involving the posterior right MCA territory as above. 2. There are additional punctate foci of acute to subacute ischemia within the right frontal lobe and right subinsular cortex. These findings suggests an embolic phenomenon. 3. There is no hemorrhage or midline shift. 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 Mary can make the ultimate decision about the coumadin if there is any history of Afib Follow-up with neurology in 4 to 6 weeks Pt (3) Fever: Was hypothermic initially, TSH normal Patient has been afebrile for about 72 hours Likely secondary to underlying infection and stroke Management of infection, bacteremia per below Continue IV antibiotic Pt (4) Bacteremia: Blood culture: Gram-negative bacilli -E. coli CT abdomen pelvis: No signs of acute process Lumbar puncture not recommended by neurology service MRSA swab: negative Currently on IV Zosyn will transition to Rocephin IV Repeat blood culture on 11/21/2021 showed no growth Clinically improved Pt (5) Seizure: EEG: Mildly diffusely abnormal EEG, consistent with a generalized nonfocal encephalopathy without associated potentially epileptogenic features Continue Keppra 500 mg every 12 hours no driving for 6 months from last seizure date, no heights, no bathing or swimming alone avoid ativan for seizure activity, load phenytoin if needed as per neuro Pt (6) Rhabdomyolysis: Mild, CPK 863 --> 375 Renal function stable Continue IV fluids Mild troponin elevation Stable at 0.1 EKG no signs of acute ischemia or infarct Echocardiogram no wall motion abnormalities Likely demand ischemia Hypertension. BP meds on hold to allow permissive hypertension Propranolol resumed today Will resume amlodipine in am Hyperlipidemia. resume usual Atorvastatin 20mg Panic disorder, on Ativan p.r.n. The patient will be on IV Ativan p.r.n. Left Humerus fracture. Sling ordered by ER. 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 No deep venous thrombus on the right. Continue coumadin DVT prophylaxis.Sequential compression devices for now. 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 Will need in patient rehab CODE STATUS: DNR/DNI Pt at 10:55 AM. Family was notified Total Time Total Time Spent Total Time Spent (In Minutes): 35 minutes Discharge Plan Discharge Items Patient Disposition: Other Date/Time: 11/24/21 10:55
== END 2021-11-24 14:54 | disposition expired | DRG 64 ==
LOC: ED 20:30 → EDINP 22:44 → SUATTDRO 22:44 → EDINP 11-20 02:02 → 2S 11-20 06:22